=== PATIENT | male | born 1940 | race Caucasian/White ===

== ENCOUNTER 2016-06-27 16:13 | Emergency (ER) | payer MEDICARE, OTHER ==
[2016-06-27 16:24] VITALS: BP 161/100
--- NOTE | 2016-06-27 17:08 | EDM.PDOC ---
ED HPI GENERAL MEDICAL PROBLEM - General Chief Complaint: ENT Problem Stated Complaint: NOSE BLEED Time Seen by Provider: 06/27/16 16:48 Source of Information: Reports: Patient History Limitations: Reports: No Limitations - History of Present Illness INITIAL COMMENTS - FREE TEXT/NARRATIVE: 76-year-old male presents for evaluation treatment of epistaxis. Patient reports that he has been having a nosebleed on and off for last couple of nights. Nose bleeds normally last only a few minutes. States that they have been resolving with pressure. He states that this nosebleed started around 3:30 PM tonight would not stop. He is unsure which nostrils coming out of. It does seem to be anterior as he has only a small amount in the back of his throat. Patient is currently on 81 mg aspirin daily. Patient reports that he has been ill with cough and cold symptoms for the last 10 days. Reports that he developed cold symptoms after returning from a trip. He is currently complaining of a cough and sinus congestion. - Related Data Allergies Allergy/AdvReac Type Severity Reaction Status Date / Time latanoprost [From Xalatan] Allergy Edema Verified 06/27/16 16:20 Penicillins Allergy Anaphylactic Verified 06/27/16 16:20 Shock timolol [Timolol] Allergy Edema Verified 06/27/16 16:20 Home Meds: Home Meds Ascorbic Acid [Vitamin C] 1 tab PO DAILY 07/27/13 [History] Cetirizine HCl [Allergy Relief] 10 mg PO DAILY PRN 07/27/13 [History] Hydrochlorothiazide 12.5 mg PO DAILY 07/27/13 [History] Multivitamin [Multivitamins] 1 each PO DAILY 07/27/13 [History] Aspirin [Ecotrin] 81 mg PO BEDTIME 08/17/14 [History] Metoprolol Tartrate [Lopressor] 25 tab PO BID 08/17/14 [History] Fish Oil/[place]-3 Fatty Acids [Fish Oil] 1,000 mg PO Q2D 06/27/16 [History] Past Medical History Other HEENT History: WEARS GLASSES AND DENTURES, 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 States has a chronic problem with left foot Social & Family History - Family History Family Medical History: Unobtainable - Tobacco Use Smoking Status *Q: Never Smoker Years of Tobacco use: 16 Used Tobacco, but Quit: Yes Month Tobacco Last Used: 47 YEARS AGO Second Hand Smoke Exposure: No - Alcohol Use Days Per Week of Alcohol Use: 0 - Recreational Drug Use Recreational Drug Use: No Drug Use in Last 12 Months: No - Living Situation & Occupation Living situation: Reports: (and) Occupation: retired ED ROS ENT - Review of Systems Review Of Systems: See Below Constitutional: Denies: Fever HEENT: Reports: Nosebleed, Sinus Problem (pressure), Other (nasal congestion). Denies: Ear Pain, Throat Pain Respiratory: Reports: Cough GI/Abdominal: Denies: Abdominal Pain, Nausea, Vomiting ED EXAM, ENT - Physical Exam Exam: See Below Exam Limited By: No Limitations General Appearance: Alert, WD/WN, No Apparent Distress Eye Exam: Right Eye: Other (entropion) Ears: Normal External Exam, Normal Canal Nose: Normal Inspection, Dried Blood (right nare). No: Septal Deformity, Septal Hematoma, Septal Performation, Active Bleeding Mouth/Throat: Normal Inspection, Normal Gums, Normal Lips, Normal Oropharynx Respiratory/Chest: No Respiratory Distress, Lungs Clear, Normal Breath Sounds Cardiovascular: Normal Peripheral Pulses, Regular Rate, Rhythm, No Murmur Neurological: Alert, Oriented, Normal Cognition Psychiatric: Normal Affect, Normal Mood Skin: Warm, Dry, Normal Color ED ENT PROCEDURES - Epistaxis Procedure Indication: epistaxis (prcedure preformed by Dr. Ferraro) Recent anticoagulants/antiplatlets: Yes (81mg aspirin daily) Uncontrolled HTN: No Recent septal/nasal surgery: No Site of bleeding: right nare Clearing of clots: patient blew nose Chemical cautery: silver nitrate topical Post cautery: antibiotic ointment Complications: No Course - Vital Signs Last Recorded V/S: Last Vital Signs Temp 37.2 C 06/27/16 16:20 Pulse 82 06/27/16 16:20 Resp 18 06/27/16 16:20 BP 161/100 H 06/27/16 16:20 Pulse Ox 100 06/27/16 16:20 - Re-Assessments/Exams Free Text/Narrative Re-Assessment/Exam: 06/27/16 19:28 On my initial interview with the patient the bleeding has since subsided. I noted some erythema and inflammation to the medial aspect of the right nare. bleeding does not appear to come from the left nare. There is a small amount of blood in the back of his throat. No active bleeding. I advised him to blow to see if we could elicit any more bleeding. I checked on him again and he continued to have no bleeding. I then took a few cotton swabs and cleaned around the right nare but was not able to start any bleeding. I then let the patient sit for a while longer to see if the bleed wound start again. It did not. We again reexamined the nose and did not find any areas of active bleeding. After I left the room the patient then had a sudden nosebleed, unfortunately, due to other incidences in the ER I unable to come directly to the patient's bedside for about 20 minutes and by that time the bleeding had again subsided. I was unable again to identify any areas of active bleeding. I asked Dr. Jones to come and evaluate the patient. He was able to identify the likely source of the bleeding at the medial right near. He cauterized the area with 3 sticks of silver nitrate. Patient was not given any medicine prior to cautery and he agreed to this. He tolerated the procedure well. I rechecked on him after 10 minutes after the cautery and no active bleeding. Will discharge him home at this time. Departure - Departure Time of Disposition: 19:28 Disposition: Home, Self-Care 01 Condition: good Clinical Impression: Epistaxis, Upper respiratory infection - Discharge Information Instructions: Upper Respiratory Infection, Adult, [id number], Nosebleed, Easy -to-Read Referrals: Alton Vigil Jr, MD [Primary Care Provider] - Forms: ED Department Discharge Additional Instructions: Rx for azithromycin 250mg given through [facility]. Take the azithromycin as prescribed. 2 tabs PO day 1 then 1 tab PO days 2-5 Do not blow nose next 48 hours. Qtip with vaseline or bactrain to the nare bid. Nothing to the right nare x 48 hours. Follow-up with PCP as needed. Please return to the ER should your symptoms change or worsen.
== END 2016-06-27 20:00 | disposition home or self-care (01) ==
LOC: JD.ED 16:13
DX: R04.0 Epistaxis (principal); J06.9 Acute upper respiratory infection, unspecified; Z96.653 Presence of artificial knee joint, bilateral; Z79.82 Long term (current) use of aspirin; Z88.0 Allergy status to penicillin; Z88.8 Allergy status to other drugs, medicaments and biological substances; Z79.899 Other long term (current) drug therapy
CPT/HCPCS: 30901; 99283; 99283-25

== ENCOUNTER 2017-08-01 06:25 | Day surgery (SDC) | payer MEDICARE, OTHER ==
[~2017-08-01 06:25] MED LIST: Lactated Ringers 1,000 ML IV SCH; Lidocaine 1%/Sod Bicarbonate in NS 8.4% 1 ML Syringe IDERM PRN; Sodium Chloride 0.9% 10 ML Syringe FLUSH PRN
[2017-08-01] MEDS ORDERED: Lactated Ringers 1,000 ML ONE (07:30)
[2017-08-01] MEDS ORDERED: ceFAZolin 1 GM Vial ONE ×2 (07:30→07:39)
[2017-08-01] MEDS ORDERED: fentaNYL 100 MCG/2 ML SDV ONE (07:31)
[2017-08-01] MEDS ORDERED: Propofol 200 MG/20 ML SDV ONE (07:31)
[2017-08-01] MEDS ORDERED: Midazolam 1 MG/ML 2 ML SDV ONE (07:31)
[2017-08-01] MEDS ORDERED: Ketamine 500 mg/10 ML MDV ONE (07:32)
[2017-08-01] MEDS ORDERED: Lidocaine 1% 4 ML ONE (07:32)
[2017-08-01] MEDS ORDERED: Bupivacaine 0.75% 30 ML SDV ONE (07:32)
[2017-08-01] MEDS ORDERED: Iodine/Sodium Iodide 2% Tincture 30 ML Bottle ONE (07:39)
[2017-08-01] MEDS ORDERED: Vancomycin 1 GM SDV ONE (07:39)
[2017-08-01] MEDS ORDERED: Bupivacaine 0.25% 30 ML SDV ONE (07:40)
[2017-08-01] MEDS ORDERED: EPINEPHrine 1 MG/ML SDV ONE ×2 (07:41→08:42)
[2017-08-01] MEDS ORDERED: Ropivacaine 0.5% 5 MG/ML 30 ML SDV ONE ×2 (07:41→08:42)
[2017-08-01] MEDS ORDERED: Dexamethasone 4 MG/ML 5 ML MDV ONE (08:07)
[2017-08-01] MEDS ORDERED: Ondansetron 4 MG/2 ML SDV ONE (08:07)
--- NOTE | 2017-08-01 08:35 | PCM.PREANE ---
Preanesthetic Assessment - Anesthesia/Transfusion/Family Hx Anesthesia History: Prior Anesthesia Without Reaction Other Type of Anesthesia Reaction Comment: Federico slow to wake up after hand surgery Family History of Anesthesia Reaction: No - Review of Systems General: No Symptoms Pulmonary: No Symptoms Cardiovascular: No Symptoms, Other (Stress test a few years ago. Negative. ) Gastrointestinal: No Symptoms Neurological: Pre-Existing Deficit (Vertigo. Seeing Dr. Hernandez. Uses a cane. Vestibular training exercises have helped him some. ), Difficulty Walking Other: Reports: None, Anxiety - Physical Assessment NPO Status Date: 08/01/17 NPO Status Time: 20:30 O2 Sat by Pulse Oximetry: 95 Respiratory Rate: 20 Vital Signs: Last Vital Signs Temp 36.8 C 08/01/17 07:20 Pulse 95 08/01/17 07:20 Resp 20 08/01/17 07:20 BP 152/90 H 08/01/17 07:20 Pulse Ox 95 08/01/17 07:20 Height: 1.7 m Weight: 76 kg ASA Class: 2 Mental Status: Alert & Oriented x3 Airway Class: Mallampati = 2 Dentition: Reports: Dentures Thyro-Mental Finger Breadths: 3 Mouth Opening Finger Breadths: 3 ROM/Head Extension: Full Lungs: Clear to Auscultation, Normal Respiratory Effort Cardiovascular: Regular Rate, Regular Rhythm - Lab Values: Laboratory Last Values MRSA (PCR) Negative 07/19/17 11:16 - Imaging/EKG Impressions: Reviewed. Prolonged WA Rate 76 - Allergies Allergies/Adverse Reactions: Allergies Allergy/AdvReac Type Severity Reaction Status Date / Time cat dander Allergy Cannot Verified 08/01/17 07:30 Remember latanoprost [From Xalatan] Allergy Edema Verified 08/01/17 07:30 Penicillins Allergy Anaphylactic Verified 08/01/17 07:30 Shock timolol [Timolol] Allergy Edema Verified 08/01/17 07:30 - Anesthesia Plan Beta Quentin: Metoprolol Med Last Dose Date: 08/01/17 Med Last Dose Time: 05:00 - Acknowledgements Anesthesia Type Planned: Spinal, Regional Block Pt an Appropriate Candidate for the Planned Anesthesia: Yes Alternatives and Risks of Anesthesia Discussed w Pt/Guardian: Yes Pt/Guardian Understands and Agrees with Anesthesia Plan: Yes Additional Comments: Artificial Eye on the right side. Ed states he is very sensitive to pain medications. He would prefer to not use any narcotics if possible. 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) GLAUCOMA WAS TREATED WITH A PROCEDURE TO TREAT THE PRESSURE Cardiovascular History: Reports: Hypertension Respiratory History: Reports: Sleep Apnea Genitourinary History: Reports: None [employer] History: Reports: None Other Musculoskeletal History: A CHILD BROKE HIS LEFT LEG AND IT WAS CASTED Neurological History: Reports: Vertigo Psychiatric History: Reports: None, Addiction, Anxiety Other Psychiatric History: 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, STATES HE'S BEEN SOBER SINCE HE WAS 27 YEARS OLD (49 YEARS) Endocrine/Metabolic History: Reports: None Hematologic History: Reports: None Immunologic History: Reports: None Oncologic (Cancer) History: Reports: None Dermatologic History: Reports: None - Past Surgical History Head Surgeries/Procedures: Reports: None HEENT Surgical History: Reports: Tonsillectomy Cardiovascular Surgical History: Reports: None Respiratory Surgical History: Reports: None GI Surgical History: Reports: Colonoscopy, Hernia Repair/Other Female Surgical History: Reports: None Male Surgical History: Reports: None Endocrine Surgical History: Reports: None Neurological Surgical History: Reports: None Musculoskeletal Surgical History: Reports: Knee Replacement Other Musculoskeletal Surgeries/Procedures:: HAMMERTOE FIXED, BILATERAL TKAS. States has a chronic problem with left foot Oncologic Surgical History: Reports: None Dermatological Surgical History: Reports: None - SUBSTANCE USE Smoking Status *Q: Former Smoker Recreational Drug Use History: No - HOME MEDS Home Medications: Home Meds Ascorbic Acid [Vitamin C] 1 tab PO DAILY 07/27/13 [History] Cetirizine HCl [Allergy Relief] 10 mg PO DAILY PRN 07/27/13 [History] Hydrochlorothiazide 12.5 mg PO DAILY 07/27/13 [History] Multivitamin [Multivitamins] 1 each PO DAILY 07/27/13 [History] Metoprolol Tartrate [Lopressor] 25 tab PO BID 08/17/14 [History] Fish Oil/[place]-3 Fatty Acids [Fish Oil 1,000 MG] 1,000 mg PO Q2D 06/27/16 [ History] Acetaminophen/HYDROcodone [[place] 325-5 MG] 1 - 2 tab PO Q6H PRN #30 tablet 08/01 [Rx] Aspirin 325 mg PO BID #84 tab 08/01/17 [Rx] - CURRENT (IN HOUSE) MEDS Current Meds: Current Medications Lactated Ringer's (Ringers, Lactated) 1,000 mls @ 125 mls/hr IV ASDIRECTED YASMIN Stop: 08/01/17 23:00 Last Admin: 08/01/17 07:31 Dose: 125 mls/hr Lidocaine/Sodium Bicarbonate (Buffered Lidocaine 1% In Ns 8.4%) 0.25 ml IDERM ONETIME PRN PRN Reason: Prior to IV Start Stop: 08/01/17 18:00 Last Admin: 08/01/17 07:31 Dose: 0.25 ml Sodium Chloride (Saline Flush) 10 ml FLUSH ASDIRECTED PRN PRN Reason: Keep Vein Open Stop: 08/01/17 18:00 Discontinued Medications Bupivacaine HCl (Sensorcaine-Mpf 0.75%) Confirm Administered Dose 30 ml .ROUTE .STK-MED ONE Stop: 08/01/17 07:33 Bupivacaine HCl (Marcaine 0.25%) Confirm Administered Dose 30 ml .ROUTE .STK- MED ONE Stop: 08/01/17 07:41 Cefazolin Sodium (Ancef) Confirm Administered Dose 2 gm .ROUTE .STK-MED ONE Stop: 08/01/17 07:31 Cefazolin Sodium (Ancef) Confirm Administered Dose 2 gm .ROUTE .STK-MED ONE Stop: 08/01/17 07:40 Dexamethasone (Dexamethasone) Confirm Administered Dose 20 mg .ROUTE .STK-MED ONE Stop: 08/01/17 08:08 Epinephrine HCl (Adrenalin) Confirm Administered Dose 1 mg .ROUTE .STK-MED ONE Stop: 08/01/17 07:42 Fentanyl (Sublimaze) Confirm Administered Dose 100 mcg .ROUTE .STK-MED ONE Stop: 08/01/17 07:32 Lactated Ringer's (Ringers, Lactated) Confirm Administered Dose 1,000 mls @ as directed .ROUTE .STK-MED ONE Stop: 08/01/17 07:31 Lidocaine HCl (Xylocaine-Mpf 1%) Confirm Administered Dose 4 mls @ as directed .ROUTE .STK-MED ONE Stop: 08/01/17 07:33 Iodine (Iodine 2% Mild Tincture) Confirm Administered Dose 30 ml .ROUTE .STK- MED ONE Stop: 08/01/17 07:40 Ketamine HCl (Ketalar) Confirm Administered Dose 500 mg .ROUTE .STK-MED ONE Stop: 08/01/17 07:33 Midazolam HCl (Versed 1 Mg/Ml) Confirm Administered Dose 2 mg .ROUTE .STK-MED ONE Stop: 08/01/17 07:32 Ondansetron HCl (Zofran) Confirm Administered Dose 4 mg .ROUTE .STK-MED ONE Stop: 08/01/17 08:08 Propofol (Diprivan 20 Ml) Confirm Administered Dose 1,200 mg .ROUTE .STK-MED ONE Stop: 08/01/17 07:32 Ropivacaine (Naropin 0.5%) Confirm Administered Dose 30 ml .ROUTE .STK-MED ONE Stop: 08/01/17 07:42 Tranexamic Acid (Cyklokapron) Confirm Administered Dose 1,000 mg .ROUTE .STK- MED ONE Stop: 08/01/17 07:40 Vancomycin HCl (Vancomycin) Confirm Administered Dose 1 gm .ROUTE .STK-MED ONE Stop: 08/01/17 07:40
[2017-08-01] MEDS ORDERED: Ondansetron 4 MG/2 ML SDV IVPUSH PRN (08:45)
[2017-08-01] MEDS ORDERED: diphenhydrAMINE 50 MG/ML SDV IVPUSH PRN (08:45)
[2017-08-01] MEDS ORDERED: HYDROmorphone 0.5 MG/0.5 ML Syringe IVPUSH PRN (08:45)
[2017-08-01] MEDS ORDERED: fentaNYL 100 MCG/2 ML SDV IVPUSH PRN (08:45)
[2017-08-01] MEDS ORDERED: Ketorolac 30 MG/ML SDV ONE ×2 (09:00→11:15)
--- NOTE | 2017-08-01 09:38 | PCM.POSTAN ---
POST ANESTHESIA ASSESSMENT - MENTAL STATUS Mental Status: Alert, Oriented - VITAL SIGNS Pulse Rate: 69 SaO2: 97 Resp Rate: 12 Blood Pressure: 112/82 Temperature: 36.2 C - RESPIRATORY Respiratory Status: Respiratory Rate WNL, Airway Patent, O2 Saturation Stable, Supplemental Oxygen - CARDIOVASCULAR CV Status: Pulse Rate WNL, Blood Pressure Stable - GASTROINTESTINAL GI Status: No Symptoms - PAIN Pain Score: 0 - POST OP HYDRATION Hydration Status: Adequate & Stable
--- NOTE | 2017-08-01 12:07 | PCM.SN ---
- Free Text/Narrative Note: Right selective femoral nerve block at the adductor canal for post-procedure pain control under US guidance requested by Dr. Berry. Time Out: 958 Start: 958 End: 1008 Chart reviewed. Consent signed. Questions answered. Appropriate monitors applied. Time out performed. Right mid-shaft femur identified with ultrasound, scanning medially of femur, the femoral artery in the adductor canal visualized , and the femoral nerve located laterally to the artery. The skin was prepped lateral to the ultrasound probe with chlorahexadine times two. The 21ga 4 insulated block needle was inserted under direct ultrasound guidance into the adductor canal. 25mL of 0.5% ropivacaine with 1:200,000 epinephrine was injected circumferentially around the nerve with intermittent negative aspiration noted. Patient tolerated the procedure well. Sterile technique noted along with sterile gloves, mask, and sterile probe cover. See picture on progress note and vital signs on nurses notes. Block completed in PACU. Mario Alberto Turner CRNA
[2017-08-02 07:48] VITALS: BP 112/82
--- NOTE | 2017-08-02 07:48 | PCM48HPAN ---
Post Anesthesia Note - EVALUATION WITHIN 48HRS OF ANESTHETIC Pulse Rate: 69 Resp Rate: 18 Temperature: 36.2 C Blood Pressure: 112/82 - COMMENTS/OBSERVATIONS Free Text/Narrative:: Patient discharged 08/01/17.
--- NOTE | 2017-08-02 11:35 | PCM.OPNOTE ---
- General Post-Op/Procedure Note Date of Surgery/Procedure: 08/01/17 Operative Procedure(s): revision of right total knee patellar component Pre Op Diagnosis: painful right total knee arthroplasty Post-Op Diagnosis: Same Anesthesia Technique: Local, MAC, Spinal Primary Surgeon: Diego Berry Anesthesia Provider: Jeanne Turner Roentgenology Teacher: Cristela Gatica Roentgenology Teacher: Domonique Treadwell EBL in mLs: 0 Complications: None Condition: Good Free Text/Narrative:: Intake & Output 08/01/17 08/02/17 08/02/17 22:59 06:59 14:59 Intake Total 0 Balance 0
--- NOTE | 2017-08-03 10:16 | OR ---
DATE OF OPERATION: 08/01/2017 SURGEON: Diego Berry MD OPERATION PERFORMED: Revision of right total knee patellar component. PREOPERATIVE DIAGNOSIS: Painful right total knee arthroplasty. POSTOPERATIVE DIAGNOSIS: Painful right total knee arthroplasty. ANESTHESIA: Local MAC with spinal. ANESTHESIA PROVIDER: Karley Stark. ASSISTANTS: Cristela Gatica PA-C and Domonique Treadwell LPN. ESTIMATED BLOOD LOSS: 0 mL. COMPLICATIONS: None. CONDITION: Stable. DESCRIPTION OF PROCEDURE: The patient was identified in the preoperative holding area. Proper site was marked and identified by the surgeon. The patient was taken back to the operating theater where after adequate anesthesia, the patient's right lower extremity had a nonsterile tourniquet applied and was then sterilely prepped and draped in the usual sterile fashion. OR time-out was performed. The patient received 2 g of IV Ancef. Previous incision was then utilized, skin incision was made, and a medial parapatellar arthrotomy was created. At this time, there was noted to be some infrapatellar adhesions. These were then removed. The patella was then everted and when I did this, the patellar button completely came out of the knee and was grossly loose. All 3 pegs had noted to shear off right at the patellar button and it was freely floating. At this time, the pegs were easily removed from the patella. It was decided that secondary to the patella measuring almost a 17, were resected to a 13 for a 32 x 10 mm patella. The resection was now down to a 13 mm patella and a lateral facetectomy was also performed at this time. We decided at this time, we are going to utilize the previous drill holes, there was no cement at them. For a [place] asymmetric patella, the clamp was placed and the drill holes were then drilled through the previous drill holes and it was noted to have good cancellous bone with no signs of retained cement. At this time, cement was mixed on the back table and a trial 32 mm patella was trialed. It was tracking centrally with no signs of subluxation or dislocation. The 32 mm [place] asymmetric patella was then cemented into place. 1 liter dilute Betadine solution along with 3 liters of pulse lavage irrigation with Ancef were irrigated through the knee. Marcaine was then injected around the knee. A #2 barbed suture was used for closure of the medial parapatellar arthrotomy. 2-0 Vicryl was used subcutaneously and Monocryl were used for the skin. The patient tolerated the procedure well and was sent to PACU in stable condition. REGINA /[id number]
== END 2017-08-01 17:00 | disposition home or self-care (01) ==
LOC: JD.SDS 06:25 → EDSTATUS 08:45 → JD.MS 12:17 → JD.SDS 17:00
PROVIDERS: ATTEND Orthopaedic Surgery
DX: T84.84XA Pain due to internal orthopedic prosthetic devices, implants and grafts, initial encounter (principal); G47.33 Obstructive sleep apnea (adult) (pediatric); I10 Essential (primary) hypertension; J30.9 Allergic rhinitis, unspecified; H81.10 Benign paroxysmal vertigo, unspecified ear; F41.8 Other specified anxiety disorders; Z88.0 Allergy status to penicillin; Z88.8 Allergy status to other drugs, medicaments and biological substances; Z79.899 Other long term (current) drug therapy
CPT/HCPCS: 87641; A9270-GY; J0171; J0690; J1100; J1885; J2001; J2250; J2405; J2704; J2795; J3010; J3370; J3490; J7120

== ENCOUNTER 2019-02-05 12:56 | Inpatient (IN) | payer MEDICARE, OTHER ==
[2019-02-05] MEDS ORDERED: Sodium Chloride 0.9% 10 ML Syringe FLUSH PRN (13:37)
[2019-02-05] MEDS ORDERED: Acetaminophen 325 MG Tab PO ONE (13:39)
--- NOTE | 2019-02-05 13:45 | EDM.PDOC ---
ED HPI GENERAL MEDICAL PROBLEM - General Chief Complaint: Fever Stated Complaint: ALLERGIC REACTION TO MEDICATION Time Seen by Provider: 02/05/19 13:15 Source of Information: Reports: Patient, Family History Limitations: Reports: No Limitations - History of Present Illness INITIAL COMMENTS - FREE TEXT/NARRATIVE: The patient presents with a possible reaction to flomax. He say urology at [place] yesterday and had a cystoscopy. He has been urinating frequently for years. The urologist put him on some flomax and he took a dose this morning and went out to eat. Later he stated shaking and had chills and did not feel well. He had a temp of 101.1 when he arrived here. He has no cough, congestion or runny nose. He did get his flu shot this year. He has no chest pain, shortness of breath, abdominal pain, nausea, vomiting, dysuria or diarrhea. He had a TIA just over a month ago and he has some balance issues. He is on aspirin. He recently took himself off of lipitor because he felt hit made him crabby. Onset: Gradual Duration: Hour(s): Severity: Mild Improves with: Reports: None Worsens with: Reports: None Associated Symptoms: Reports: Fever/Chills. Denies: Chest Pain, Cough, Headaches, Nausea/Vomiting, Shortness of Breath - Related Data Allergies Allergy/AdvReac Type Severity Reaction Status Date / Time cat dander Allergy Cannot Verified 02/05/19 13:19 Remember latanoprost [From Xalatan] Allergy Edema Verified 02/05/19 13:19 Penicillins Allergy Anaphylactic Verified 02/05/19 13:19 Shock timolol [Timolol] Allergy Edema Verified 02/05/19 13:19 Home Meds: Home Meds Ascorbic Acid [Vitamin C] 1 tab PO DAILY 07/27/13 [History] Multivitamin [Multivitamins] 1 each PO DAILY 07/27/13 [History] hydroCHLOROthiazide [Hydrochlorothiazide] 12.5 mg PO DAILY 07/27/13 [History] Metoprolol Tartrate [Lopressor] 50 tab PO BID 08/17/14 [History] Cholecalciferol (Vitamin D3) [Vitamin D3] 5,000 unit PO DAILY 02/05/19 [History] Tamsulosin [Flomax] 0.4 mg PO DAILY 12/19/19 [History] Past Medical History HEENT History: Reports: Glaucoma, Impaired Vision Other HEENT History: WEARS GLASSES AND DENTURES, 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) GLAUCOMA WAS TREATED WITH A PROCEDURE TO TREAT THE PRESSURE Cardiovascular History: Reports: Afib, Hypertension Respiratory History: Reports: Sleep Apnea Gastrointestinal History: Reports: Colon Polyp Genitourinary History: Reports: None RN CARDIOVASCULAR History: Reports: None Musculoskeletal History: Reports: Fracture Other Musculoskeletal History: A CHILD BROKE HIS LEFT LEG AND IT WAS CASTED Neurological History: Reports: Vertigo Psychiatric History: Reports: Addiction Other Psychiatric History: 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, STATES HE'S BEEN SOBER SINCE HE WAS 27 YEARS OLD (49 YEARS) Endocrine/Metabolic History: Reports: None Hematologic History: Reports: None Immunologic History: Reports: None Oncologic (Cancer) History: Reports: Basal Cell Carcinoma, Other (See Below) Dermatologic History: Reports: None - Past Surgical History Head Surgeries/Procedures: Reports: None HEENT Surgical History: Reports: Eye Surgery, Oral Surgery, Tonsillectomy GI Surgical History: Reports: Colonoscopy, EGD, Hernia, Inguinal, Hernia Repair/ Other Male Surgical History: Reports: None Endocrine Surgical History: Reports: None Musculoskeletal Surgical History: Reports: Knee Replacement, Other (See Below) Dermatological Surgical History: Reports: None Social & Family History - Family History Family Medical History: Unobtainable - Tobacco Use Smoking Status *Q: Unknown Ever Smoked - Caffeine Use Caffeine Use: Reports: Coffee - Living Situation & Occupation Living situation: Reports: , with Spouse Occupation: Retired ED ROS GENERAL - Review of Systems Review Of Systems: See Below Constitutional: Reports: Fever, Chills, Malaise, Weakness, Fatigue HEENT: Reports: No Symptoms Respiratory: Reports: No Symptoms Cardiovascular: Reports: No Symptoms Endocrine: Reports: No Symptoms GI/Abdominal: Reports: No Symptoms : Reports: No Symptoms Musculoskeletal: Reports: No Symptoms Skin: Reports: No Symptoms ED EXAM, SEPSIS - Physical Exam Exam: See Below Exam Limited By: No Limitations General Appearance: Alert, No Apparent Distress Ears: Normal External Exam Nose: Normal Inspection Head: Atraumatic, Normocephalic Neck: Normal Inspection Respiratory/Chest: No Respiratory Distress, Lungs Clear, Normal Breath Sounds Cardiovascular: Regular Rate, Rhythm, No Edema, No Murmur GI/Abdominal Exam: Soft, Non-Tender, No Organomegaly, No Mass Back: Normal Inspection Extremities: Normal Inspection Neurological: Alert, Oriented, No Motor/Sensory Deficits Course - Vital Signs Last Recorded V/S: Last Vital Signs Temp 101.1 F H 02/05/19 13:16 Pulse 104 H 02/05/19 13:16 Resp 16 02/05/19 13:16 BP 162/108 H 02/05/19 13:16 Pulse Ox 98 02/05/19 13:16 - Orders/Labs/Meds Orders: Active Orders 24 hr Category Date Time Status Peripheral IV Care [RC] . DIRECTED Care 02/05/19 13:38 Active CULTURE BLOOD [BC] Stat Lab 02/05/19 14:20 Received CULTURE BLOOD [BC] Stat Lab 02/05/19 14:30 Received CULTURE URINE [RM] Stat Lab 02/05/19 13:23 Received LACTIC ACID [CHEM] Stat Lab 02/05/19 17:30 Ordered Sodium Chloride 0.9% [Normal Saline] 1,000 ml Med 02/05/19 14:00 Active IV ASDIRECTED Sodium Chloride 0.9% [Saline Flush] Med 02/05/19 13:37 Active 10 ml FLUSH ASDIRECTED PRN Blood Culture x2 Reflex Set [OM.PC] Stat Oth 02/05/19 13:37 Ordered Peripheral IV Insertion Adult [OM.PC] Stat Oth 02/05/19 13:37 Ordered Post Void Residual [OM.PC] Routine Oth 02/05/19 16:23 Ordered Medication Orders Sodium Chloride (Normal Saline) 1,000 mls @ 100 mls/hr IV ASDIRECTED YASMIN Last Admin: 02/05/19 14:30 Dose: 100 mls/hr Sodium Chloride (Saline Flush) 10 ml FLUSH ASDIRECTED PRN PRN Reason: Keep Vein Open Last Admin: 02/05/19 14:25 Dose: 10 ml Labs: Laboratory Tests 02/05/19 02/05/19 02/05/19 Range/Units 13:23 14:20 14:20 WBC 10.81 H (4.23-9.07) K/mm3 RBC 4.65 (4.63-6.08) M/mm3 Hgb 13.5 L (13.7-17.5) gm/dl Hct 39.7 L (40.1-51.0) % MCV 85.4 (79.0-92.2) fl MCH 29.0 (25.7-32.2) pg MCHC 34.0 (32.2-35.5) g/dl RDW Std Deviation 40.6 (35.1-43.9) fL Plt Count 237 D (163-337) K/mm3 MPV 8.7 L (9.4-12.3) fl Neut % (Auto) 88.1 H (34.0-67.9) % Lymph % (Auto) 3.2 L (21.8-53.1) % [place] % (Auto) 7.6 (5.3-12.2) % Eos % (Auto) 0.8 (0.8-7.0) Baso % (Auto) 0.2 (0.1-1.2) % Neut # (Auto) 9.52 H (1.78-5.38) K/mm3 Lymph # (Auto) 0.35 L (1.32-3.57) K/mm3 [place] # (Auto) 0.82 (0.30-0.82) K/mm3 Eos # (Auto) 0.09 (0.04-0.54) K/mm3 Baso # (Auto) 0.02 (0.01-0.08) K/mm3 Manual Slide Review Abnormal smear Sodium 133 L (136-145) mEq/L Potassium 3.4 L (3.5-5.1) mEq/L Chloride 96 L (98-107) mEq/L Carbon Dioxide 27 (21-32) mEq/L Anion Gap 13.4 (5-15) BUN 14 (7-18) mg/dL Creatinine 0.8 (0.7-1.3) mg/dL Est Cr Clr Drug Dosing 76.00 mL/min Estimated GFR (MDRD) > 60 (>60) mL/min BUN/Creatinine Ratio 17.5 (14-18) Glucose 95 (83-115) mg/dL Lactic Acid (0.4-2.0) mmol/L Calcium 8.7 (8.5-10.1) mg/dL Total Bilirubin 1.6 H (0.2-1.0) mg/dL AST 27 (15-37) U/L ALT 25 (16-63) U/L Alkaline Phosphatase 97 (46-116) U/L Total Protein 6.9 (6.4-8.2) g/dl Albumin 3.8 (3.4-5.0) g/dl Globulin 3.1 gm/dL Albumin/Globulin Ratio 1.2 (1-2) Urine Color Yellow (Yellow) Urine Appearance Slt cloudy H (Clear) Urine pH 6.5 (5.0-8.0) Ur Specific [place] 1.025 (1.005-1.030) Urine Protein 1+ H (Negative) Urine Glucose (UA) Negative (Negative) Urine Ketones Negative (Negative) Urine Occult Blood 3+ H (Negative) Urine Nitrite Negative (Negative) Urine Bilirubin Negative (Negative) Urine Urobilinogen 1.0 (0.2-1.0) Ur Leukocyte Esterase 1+ H (Negative) Urine RBC 50-75 H (0-5) /hpf Urine WBC 40-50 H (0-5) /hpf Ur Squamous Epith Cells 0-5 (0-5) /hpf Urine Bacteria Moderate H (FEW) /hpf Urine Mucus Few (FEW) /hpf 02/05/19 Range/Units 14:20 WBC (4.23-9.07) K/mm3 RBC (4.63-6.08) M/mm3 Hgb (13.7-17.5) gm/dl Hct (40.1-51.0) % MCV (79.0-92.2) fl MCH (25.7-32.2) pg MCHC (32.2-35.5) g/dl RDW Std Deviation (35.1-43.9) fL Plt Count (163-337) K/mm3 MPV (9.4-12.3) fl Neut % (Auto) (34.0-67.9) % Lymph % (Auto) (21.8-53.1) % [place] % (Auto) (5.3-12.2) % Eos % (Auto) (0.8-7.0) Baso % (Auto) (0.1-1.2) % Neut # (Auto) (1.78-5.38) K/mm3 Lymph # (Auto) (1.32-3.57) K/mm3 [place] # (Auto) (0.30-0.82) K/mm3 Eos # (Auto) (0.04-0.54) K/mm3 Baso # (Auto) (0.01-0.08) K/mm3 Manual Slide Review Sodium (136-145) mEq/L Potassium (3.5-5.1) mEq/L Chloride (98-107) mEq/L Carbon Dioxide (21-32) mEq/L Anion Gap (5-15) BUN (7-18) mg/dL Creatinine (0.7-1.3) mg/dL Est Cr Clr Drug Dosing mL/min Estimated GFR (MDRD) (>60) mL/min BUN/Creatinine Ratio (14-18) Glucose (83-115) mg/dL Lactic Acid 1.2 (0.4-2.0) mmol/L Calcium (8.5-10.1) mg/dL Total Bilirubin (0.2-1.0) mg/dL AST (15-37) U/L ALT (16-63) U/L Alkaline Phosphatase (46-116) U/L Total Protein (6.4-8.2) g/dl Albumin (3.4-5.0) g/dl Globulin gm/dL Albumin/Globulin Ratio (1-2) Urine Color (Yellow) Urine Appearance (Clear) Urine pH (5.0-8.0) Ur Specific [place] (1.005-1.030) Urine Protein (Negative) Urine Glucose (UA) (Negative) Urine Ketones (Negative) Urine Occult Blood (Negative) Urine Nitrite (Negative) Urine Bilirubin (Negative) Urine Urobilinogen (0.2-1.0) Ur Leukocyte Esterase (Negative) Urine RBC (0-5) /hpf Urine WBC (0-5) /hpf Ur Squamous Epith Cells (0-5) /hpf Urine Bacteria (FEW) /hpf Urine Mucus (FEW) /hpf Meds: Medications Generic Name Dose Route Start Last Admin Trade Name Freq PRN Reason Stop Dose Admin Sodium Chloride 1,000 mls @ 100 mls/hr 02/05/19 14:00 02/05/19 14:30 Normal Saline IV 100 mls/hr ASDIRECTED YASMIN Administration Sodium Chloride 10 ml 02/05/19 13:37 02/05/19 14:25 Saline Flush FLUSH 10 ml ASDIRECTED PRN Administration Keep Vein Open Discontinued Medications Generic Name Dose Route Start Last Admin Trade Name Freq PRN Reason Stop Dose Admin Acetaminophen 975 mg 02/05/19 13:39 02/05/19 14:24 Tylenol PO 02/05/19 13:40 975 mg NOW ONE Administration Ceftriaxone Sodium 2 gm/ 100 mls @ 200 mls/hr 02/05/19 15:10 02/05/19 15:17 Sodium Chloride IV 02/05/19 15:39 200 mls/hr ONETIME ONE Administration - Re-Assessments/Exams Free Text/Narrative Re-Assessment/Exam: 02/05/19 14:23 I ordered an IV NS at 100ml/hr, labs, tylenol 975mg PO, lactic acid, blood cultures and UA. 02/05/19 16:20 His WBC was elevated at 10.81. His Na was a little low at 133. His K was a little low at 3.4. His total bili is elevated at 1.6. His UA shows a UTI. I have ordered urine culture and rocephin 2 grams IV[address] I [address] Dr Tello the urologist who he has been seeing at [place]. 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 He also mentioned he had a slightly enlarged prostate and some signs of BPH. He recommended we do a post void. He had 29mls when he was there. I will talk to Dr Greer and see if we can admit him. 02/05/19 16:48 Dr Greer agreed to the admission. Departure - Departure Time of Disposition: 16:50 Disposition: Refer to Observation Condition: Fair Clinical Impression: Tachycardia UTI (urinary tract infection) Qualifiers: Urinary tract infection type: acute cystitis Hematuria presence: with hematuria Qualified Code(s): N30.01 - Acute cystitis with hematuria - Discharge Information Referrals: Alton Vigil Jr, MD [Primary Care Provider] - Forms: ED Department Discharge Sepsis Event Note - Evaluation Sepsis Screening Result: No Definite Risk - Focused Exam Vital Signs: Vital Signs Temp Pulse Resp BP Pulse Ox 02/05/19 13:16 101.1 F H 104 H 16 162/108 H 98 Date Exam was Performed: 02/05/19 Time Exam was Performed: 16:48 - My Orders Last 24 Hours: My Active Orders 02/05/19 13:23 CULTURE URINE [RM] Stat 02/05/19 13:37 Sodium Chloride 0.9% [Saline Flush] 10 ml FLUSH ASDIRECTED PRN Blood Culture x2 Reflex Set [OM.PC] Stat Peripheral IV Insertion Adult [OM.PC] Stat 02/05/19 13:38 Peripheral IV Care [RC] . DIRECTED 02/05/19 14:00 Sodium Chloride 0.9% [Normal Saline] 1,000 ml IV ASDIRECTED 02/05/19 14:20 CULTURE BLOOD [BC] Stat 02/05/19 14:30 CULTURE BLOOD [BC] Stat 02/05/19 16:23 Post Void Residual [OM.PC] Routine 02/05/19 17:30 LACTIC ACID [CHEM] Stat - Assessment/Plan Last 24 Hours: My Active Orders 02/05/19 13:23 CULTURE URINE [RM] Stat 02/05/19 13:37 Sodium Chloride 0.9% [Saline Flush] 10 ml FLUSH ASDIRECTED PRN Blood Culture x2 Reflex Set [OM.PC] Stat Peripheral IV Insertion Adult [OM.PC] Stat 02/05/19 13:38 Peripheral IV Care [RC] . DIRECTED 02/05/19 14:00 Sodium Chloride 0.9% [Normal Saline] 1,000 ml IV ASDIRECTED 02/05/19 14:20 CULTURE BLOOD [BC] Stat 02/05/19 14:30 CULTURE BLOOD [BC] Stat 02/05/19 16:23 Post Void Residual [OM.PC] Routine 02/05/19 17:30 LACTIC ACID [CHEM] Stat
[2019-02-05] MEDS ORDERED: Sodium Chloride 0.9% 1,000 ML IV SCH (14:00)
[2019-02-05] MEDS ORDERED: cefTRIAXone 2 GM in Sodium Chloride 0.9% 100 ML IV ONE (15:10)
--- NOTE | 2019-02-05 17:15 | PCM.HP.2 ---
H&P History of Present Illness - General Date of Service: 02/05/19 - History of Present Illness Initial Comments - Free Text/Narative: This is a 78 year old male with past medical history of hypertension who comes to the ED complaining of chills. As per patient he got a cystoscopy yesterday for microscopic hematuria, he tolerated the procedure well; was discharged home after procedure to start Flomax at home. Today in the morning he suddenly developed chills and fever for which he decided to come to the ED to be evaluated. - Related Data Allergies/Adverse Reactions: Allergies Allergy/AdvReac Type Severity Reaction Status Date / Time cat dander Allergy Cannot Verified 02/05/19 18:03 Remember latanoprost [From Xalatan] Allergy Edema Verified 02/05/19 18:03 Penicillins Allergy Anaphylactic Verified 02/05/19 18:03 Shock timolol [Timolol] Allergy Edema Verified 02/05/19 18:03 Home Medications: Home Meds Ascorbic Acid [Vitamin C] 1 tab PO DAILY 07/27/13 [History] Multivitamin [Multivitamins] 1 each PO DAILY 07/27/13 [History] hydroCHLOROthiazide [Hydrochlorothiazide] 12.5 mg PO DAILY 07/27/13 [History] Carboxymethylcellulose Sodium [Refresh Tears] 1 ml OP PRN 02/05/19 [History] Cholecalciferol (Vitamin D3) [Vitamin D3] 5,000 unit PO DAILY 02/05/19 [History] Metoprolol Tartrate 25 mg PO BID 02/05/19 [History] Mineral Oil/Petrolatum,White [Lubricant Eye Ointment] 3.5 gm OP 02/05/19 [ History] Tamsulosin [Flomax] 0.4 mg PO DAILY 02/05/19 [History] Past Medical History HEENT History: Reports: Glaucoma, Impaired Vision Other HEENT History: WEARS GLASSES AND DENTURES, 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) GLAUCOMA WAS TREATED WITH A PROCEDURE TO TREAT THE PRESSURE Cardiovascular History: Reports: Afib, Hypertension Respiratory History: Reports: Sleep Apnea Gastrointestinal History: Reports: Colon Polyp Genitourinary History: Reports: None FILAMENT WELDER 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: 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: 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 Musculoskeletal History: Reports: Fracture Other Musculoskeletal History: A CHILD BROKE HIS LEFT LEG AND IT WAS CASTED Neurological History: Reports: Vertigo Psychiatric History: Reports: Addiction Other Psychiatric History: 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, STATES HE'S BEEN SOBER SINCE HE WAS 27 YEARS OLD (49 YEARS) Endocrine/Metabolic History: Reports: None Hematologic History: Reports: None Immunologic History: Reports: None Oncologic (Cancer) History: Reports: Basal Cell Carcinoma, Other (See Below) Dermatologic History: Reports: None - Past Surgical History Head Surgeries/Procedures: Reports: None HEENT Surgical History: Reports: Eye Surgery, Oral Surgery, Tonsillectomy GI Surgical History: Reports: Colonoscopy, EGD, Hernia, Inguinal, Hernia Repair/ Other Male Surgical History: Reports: None Endocrine Surgical History: Reports: None Musculoskeletal Surgical History: Reports: Knee Replacement, Other (See Below) Dermatological Surgical History: Reports: None Social & Family History - Family History Family Medical History: Unobtainable - Tobacco Use Smoking Status *Q: Unknown Ever Smoked - Caffeine Use Caffeine Use: Reports: Coffee - Living Situation & Occupation Living situation: Reports: , with Spouse Occupation: Retired H&P Review of Systems - Review of Systems: Review Of Systems: See Below General: Reports: Fever, Malaise. Denies: Weakness, Fatigue, Night Sweats, Diaphoresis, Decreased Appetite, Weight Loss, Weight Gain HEENT: Denies: Rhinitis, Post Nasal Drip, Sinus Congestion, Sore Throat, Vertigo , Visual Changes Pulmonary: Denies: Shortness of Breath, Wheezing, Pleuritic Chest Pain, Cough, Sputum Cardiovascular: Denies: Chest Pain, Palpitations, Dyspnea on Exertion, Orthopnea , PND, Edema, Lightheadedness Gastrointestinal: Denies: Abdominal Pain, Anorexia, Black Stool, Bloody Stool, Constipation, Diarrhea, Decreased Appetite, Difficulty Swallowing, Distension, Flatus, Hematemesis, Hematochezia, Melena, Nausea, Vomiting Genitourinary: Reports: Frequency, Hematuria. Denies: Dysuria, Burning, Pain, Urgency, Incontinence Musculoskeletal: Denies: Joint Pain, Joint Swelling, Muscle Pain, Muscle Stiffness Skin: Denies: Cyanosis, Jaundice, Mottled, Pallor, Diaphoresis, Dryness Psychiatric: Denies: Confusion, Depression, Mood Lability, Anxiety, Agitation Neurological: Denies: Confusion, Dizziness, Headache, Numbness, Paresthesia Exam - Exam Exam: See Below - Vital Signs Vital Signs: Last Vital Signs Temp 101.1 F H 02/05/19 13:16 Pulse 104 H 02/05/19 13:16 Resp 16 02/05/19 13:16 BP 162/108 H 02/05/19 13:16 Pulse Ox 98 02/05/19 13:16 Weight: 78.018 kg - Exam General: Alert, Oriented, Cooperative HEENT: Conjunctiva Clear, EACs Clear, Nares Patent, Normal Nasal Septum Neck: Supple, Trachea Midline, +2 Carotid Pulse wo Bruit, Full Range of Motion. No: Lymphadenopathy Lungs: Clear to Auscultation, Normal Respiratory Effort. No: Decreased Breath Sounds, Crackles, Rales, Rhonchi, Rub, Stridor, Wheezing Cardiovascular: Regular Rate, Regular Rhythm. No: Systolic Murmur, Diastolic Murmur, Rubs, Gallop/S3, Gallop/S4 GI/Abdominal Exam: Normal Bowel Sounds, Soft, Non-Tender, No Organomegaly, No Distention Back Exam: Normal Inspection. No: CVA Tenderness (L), CVA Tenderness (R) Extremities: Normal Inspection, Normal Range of Motion, Non-Tender, No Pedal Edema Skin: Warm - Patient Data Result Diagrams: 02/06/19 05:28 02/06/19 05:28 Sepsis Event Note - Evaluation Sepsis Screening Result: No Definite Risk - Focused Exam Vital Signs: Vital Signs Temp Pulse Resp BP Pulse Ox 02/05/19 13:16 101.1 F H 104 H 16 162/108 H 98 Date Exam was Performed: 02/06/19 Time Exam was Performed: 17:59 - Problem List (1) Hypertension SNOMED Code(s): 98747893 ICD Code: I10 - ESSENTIAL (PRIMARY) HYPERTENSION Status: Acute Current Visit: Yes (2) Fever SNOMED Code(s): 808263595 ICD Code: R50.9 - FEVER, UNSPECIFIED Status: Acute Current Visit: Yes (3) Hematuria SNOMED Code(s): 87061480 ICD Code: R31.9 - HEMATURIA, UNSPECIFIED Status: Acute Current Visit: Yes (4) Tachycardia SNOMED Code(s): 7346167 ICD Code: R00.0 - TACHYCARDIA, UNSPECIFIED Status: Acute Current Visit: Yes (5) UTI (urinary tract infection) SNOMED Code(s): 76275983 ICD Code: N39.0 - URINARY TRACT INFECTION, SITE NOT SPECIFIED Status: Acute Current Visit: Yes Qualifiers: Urinary tract infection type: acute cystitis Hematuria presence: with hematuria Qualified Code(s): N30.01 - Acute cystitis with hematuria (6) Prostate hypertrophy SNOMED Code(s): 142492516 ICD Code: N40.0 - BENIGN PROSTATIC HYPERPLASIA WITHOUT LOWER URINRY TRACT SYMP Status: Chronic Priority: Medium Current Visit: No Onset Date: 03/04 Problem List Initiated/Reviewed/Updated: Yes Assessment/Plan Comment:: UTI (urinary tract infection) Tachycardia Fever s/p cystoscopy Prostate hypertrophy Pathologic UA after cystoscopy Patient is likely bacteremic due to high and recurrent fevers Urine and blood cultures sent out PLAN - Start ceftriaxone - Trend temperature - Reculture if febrile - Monitor VS Hypertension BP on admission 162/108 Home management with metoprolol and HCTZ PLAN - Continue home meds - Lower metoprolol dose - Hydralazine PRN PROPHYLAXIS DVT-Lovenox GI- not indicated CODE STATUS: FULL CODE DISPOSITION: Patient will be admitted for Iv antibiotics and monitorization. - Mortality Measure Prognosis:: Good
[2019-02-05] MEDS ORDERED: Ondansetron 4 MG/2 ML SDV IV PRN (17:16)
[2019-02-05] MEDS ORDERED: hydrALAZINE 20 MG/ML SDV IVPUSH PRN (17:16)
[2019-02-05] MEDS ORDERED: Ondansetron 4 MG Tab.DIS PO PRN (17:16)
[2019-02-05] MEDS: Lactated Ringers 1,000 ML IV SCH (17:29)
[2019-02-05] MEDS ORDERED: cefTRIAXone 2 GM in Sodium Chloride 0.9% 100 ML IV SCH (17:30)
[2019-02-05] MEDS ORDERED: Metoprolol Tartrate 25 MG Tab PO ONE (21:00)
[2019-02-05] MEDS ORDERED: Metoprolol Tartrate 25 MG Tab PO SCH (21:00)
[2019-02-05] MEDS ORDERED: METOPROLOL TARTRATE 50 MG PO SCH ×2 (21:00)
[2019-02-06] MEDS: Acetaminophen 325 MG Tab PO PRN ×2 (00:49→12:53)
[2019-02-06] MEDS: Lactated Ringers 1,000 ML IV SCH (01:53)
--- NOTE | 2019-02-06 08:41 | PCM.PN ---
- General Info Date of Service: 02/06/19 - Patient Data Vitals - Most Recent: Last Vital Signs Temp 98.1 F 02/06/19 07:58 Pulse 103 H 02/06/19 07:58 Resp 16 02/06/19 07:58 BP 126/83 02/06/19 07:58 Pulse Ox 99 02/06/19 07:58 Weight - Most Recent: 174 lb 9.6 oz I&O - Last 24 Hours: Intake & Output 02/05/19 02/06/19 02/06/19 22:59 06:59 14:59 Intake Total 300 1435 Output Total 30 400 Balance 270 1035 Lab Results Last 24 Hours: Laboratory Results - last 24 hr 02/05/19 02/05/19 02/05/19 Range/Units 13:23 14:20 14:20 WBC 10.81 H (4.23-9.07) K/mm3 RBC 4.65 (4.63-6.08) M/mm3 Hgb 13.5 L (13.7-17.5) gm/dl Hct 39.7 L (40.1-51.0) % MCV 85.4 (79.0-92.2) fl MCH 29.0 (25.7-32.2) pg MCHC 34.0 (32.2-35.5) g/dl RDW Std Deviation 40.6 (35.1-43.9) fL Plt Count 237 D (163-337) K/mm3 MPV 8.7 L (9.4-12.3) fl Neut % (Auto) 88.1 H (34.0-67.9) % Lymph % (Auto) 3.2 L (21.8-53.1) % [place] % (Auto) 7.6 (5.3-12.2) % Eos % (Auto) 0.8 (0.8-7.0) Baso % (Auto) 0.2 (0.1-1.2) % Neut # (Auto) 9.52 H (1.78-5.38) K/mm3 Lymph # (Auto) 0.35 L (1.32-3.57) K/mm3 [place] # (Auto) 0.82 (0.30-0.82) K/mm3 Eos # (Auto) 0.09 (0.04-0.54) K/mm3 Baso # (Auto) 0.02 (0.01-0.08) K/mm3 Manual Slide Review Abnormal smear Sodium 133 L (136-145) mEq/L Potassium 3.4 L (3.5-5.1) mEq/L Chloride 96 L (98-107) mEq/L Carbon Dioxide 27 (21-32) mEq/L Anion Gap 13.4 (5-15) BUN 14 (7-18) mg/dL Creatinine 0.8 (0.7-1.3) mg/dL Est Cr Clr Drug Dosing 76.00 mL/min Estimated GFR (MDRD) > 60 (>60) mL/min BUN/Creatinine Ratio 17.5 (14-18) Glucose 95 (83-115) mg/dL Lactic Acid (0.4-2.0) mmol/L Calcium 8.7 (8.5-10.1) mg/dL Phosphorus (2.6-4.7) mg/dL Magnesium (1.8-2.4) mg/dl Total Bilirubin 1.6 H (0.2-1.0) mg/dL AST 27 (15-37) U/L ALT 25 (16-63) U/L Alkaline Phosphatase 97 (46-116) U/L Total Protein 6.9 (6.4-8.2) g/dl Albumin 3.8 (3.4-5.0) g/dl Globulin 3.1 gm/dL Albumin/Globulin Ratio 1.2 (1-2) Urine Color Yellow (Yellow) Urine Appearance Slt cloudy H (Clear) Urine pH 6.5 (5.0-8.0) Ur Specific [place] 1.025 (1.005-1.030) Urine Protein 1+ H (Negative) Urine Glucose (UA) Negative (Negative) Urine Ketones Negative (Negative) Urine Occult Blood 3+ H (Negative) Urine Nitrite Negative (Negative) Urine Bilirubin Negative (Negative) Urine Urobilinogen 1.0 (0.2-1.0) Ur Leukocyte Esterase 1+ H (Negative) Urine RBC 50-75 H (0-5) /hpf Urine WBC 40-50 H (0-5) /hpf Ur Squamous Epith Cells 0-5 (0-5) /hpf Urine Bacteria Moderate H (FEW) /hpf Urine Mucus Few (FEW) /hpf 02/05/19 02/05/19 02/06/19 Range/Units 14:20 17:20 05:28 WBC 15.01 H (4.23-9.07) K/mm3 RBC 4.32 L (4.63-6.08) M/mm3 Hgb 12.4 L (13.7-17.5) gm/dl Hct 37.0 L (40.1-51.0) % MCV 85.6 (79.0-92.2) fl MCH 28.7 (25.7-32.2) pg MCHC 33.5 (32.2-35.5) g/dl RDW Std Deviation 41.3 (35.1-43.9) fL Plt Count 183 (163-337) K/mm3 MPV 9.5 (9.4-12.3) fl Neut % (Auto) 81.6 H (34.0-67.9) % Lymph % (Auto) 5.9 L (21.8-53.1) % [place] % (Auto) 12.1 (5.3-12.2) % Eos % (Auto) 0.1 L (0.8-7.0) Baso % (Auto) 0.1 (0.1-1.2) % Neut # (Auto) 12.26 H (1.78-5.38) K/mm3 Lymph # (Auto) 0.88 L (1.32-3.57) K/mm3 [place] # (Auto) 1.81 H (0.30-0.82) K/mm3 Eos # (Auto) 0.01 L (0.04-0.54) K/mm3 Baso # (Auto) 0.02 (0.01-0.08) K/mm3 Manual Slide Review Abnormal smear Sodium (136-145) mEq/L Potassium (3.5-5.1) mEq/L Chloride (98-107) mEq/L Carbon Dioxide (21-32) mEq/L Anion Gap (5-15) BUN (7-18) mg/dL Creatinine (0.7-1.3) mg/dL Est Cr Clr Drug Dosing mL/min Estimated GFR (MDRD) (>60) mL/min BUN/Creatinine Ratio (14-18) Glucose (83-115) mg/dL Lactic Acid 1.2 0.8 (0.4-2.0) mmol/L Calcium (8.5-10.1) mg/dL Phosphorus (2.6-4.7) mg/dL Magnesium (1.8-2.4) mg/dl Total Bilirubin (0.2-1.0) mg/dL AST (15-37) U/L ALT (16-63) U/L Alkaline Phosphatase (46-116) U/L Total Protein (6.4-8.2) g/dl Albumin (3.4-5.0) g/dl Globulin gm/dL Albumin/Globulin Ratio (1-2) Urine Color (Yellow) Urine Appearance (Clear) Urine pH (5.0-8.0) Ur Specific [place] (1.005-1.030) Urine Protein (Negative) Urine Glucose (UA) (Negative) Urine Ketones (Negative) Urine Occult Blood (Negative) Urine Nitrite (Negative) Urine Bilirubin (Negative) Urine Urobilinogen (0.2-1.0) Ur Leukocyte Esterase (Negative) Urine RBC (0-5) /hpf Urine WBC (0-5) /hpf Ur Squamous Epith Cells (0-5) /hpf Urine Bacteria (FEW) /hpf Urine Mucus (FEW) /hpf 02/06/19 Range/Units 05:28 WBC (4.23-9.07) K/mm3 RBC (4.63-6.08) M/mm3 Hgb (13.7-17.5) gm/dl Hct (40.1-51.0) % MCV (79.0-92.2) fl MCH (25.7-32.2) pg MCHC (32.2-35.5) g/dl RDW Std Deviation (35.1-43.9) fL Plt Count (163-337) K/mm3 MPV (9.4-12.3) fl Neut % (Auto) (34.0-67.9) % Lymph % (Auto) (21.8-53.1) % [place] % (Auto) (5.3-12.2) % Eos % (Auto) (0.8-7.0) Baso % (Auto) (0.1-1.2) % Neut # (Auto) (1.78-5.38) K/mm3 Lymph # (Auto) (1.32-3.57) K/mm3 [place] # (Auto) (0.30-0.82) K/mm3 Eos # (Auto) (0.04-0.54) K/mm3 Baso # (Auto) (0.01-0.08) K/mm3 Manual Slide Review Sodium 132 L (136-145) mEq/L Potassium 3.2 L (3.5-5.1) mEq/L Chloride 98 (98-107) mEq/L Carbon Dioxide 25 (21-32) mEq/L Anion Gap 12.2 (5-15) BUN 16 (7-18) mg/dL Creatinine 0.8 (0.7-1.3) mg/dL Est Cr Clr Drug Dosing 76.00 mL/min Estimated GFR (MDRD) > 60 (>60) mL/min BUN/Creatinine Ratio 20.0 H (14-18) Glucose 136 H (83-115) mg/dL Lactic Acid (0.4-2.0) mmol/L Calcium 8.5 (8.5-10.1) mg/dL Phosphorus 3.1 (2.6-4.7) mg/dL Magnesium 1.6 L (1.8-2.4) mg/dl Total Bilirubin (0.2-1.0) mg/dL AST (15-37) U/L ALT (16-63) U/L Alkaline Phosphatase (46-116) U/L Total Protein (6.4-8.2) g/dl Albumin (3.4-5.0) g/dl Globulin gm/dL Albumin/Globulin Ratio (1-2) Urine Color (Yellow) Urine Appearance (Clear) Urine pH (5.0-8.0) Ur Specific [place] (1.005-1.030) Urine Protein (Negative) Urine Glucose (UA) (Negative) Urine Ketones (Negative) Urine Occult Blood (Negative) Urine Nitrite (Negative) Urine Bilirubin (Negative) Urine Urobilinogen (0.2-1.0) Ur Leukocyte Esterase (Negative) Urine RBC (0-5) /hpf Urine WBC (0-5) /hpf Ur Squamous Epith Cells (0-5) /hpf Urine Bacteria (FEW) /hpf Urine Mucus (FEW) /hpf Hany Results Last 24 Hours: Microbiology 02/05/19 13:50 Influenza Type A Antigen Screen - Final Nasopharyngeal Swab NEGATIVE INFLUENZA A VIRUS AG REFERENCE RANGE: NEGATIVE Influenza Type B Antigen Screen - Final NEGATIVE INFLUENZA B VIRUS AG REFERENCE RANGE: NEGATIVE Med Orders - Current: Current Medications Acetaminophen (Tylenol) 650 mg PO Q4H PRN PRN Reason: Pain (Mild 1-3)/fever Last Admin: 02/06/19 00:49 Dose: 650 mg Enoxaparin Sodium (Lovenox) 40 mg SUBCUT DAILY [facility] Hydralazine HCl (Apresoline) 10 mg IVPUSH Q2H PRN PRN Reason: Hypertension Lactated Ringer's (Ringers, Lactated) 1,000 mls @ 125 mls/hr IV ASDIRECTED [facility] Last Admin: 02/06/19 01:53 Dose: 125 mls/hr Ceftriaxone Sodium 2 gm/ (Sodium Chloride) 100 mls @ 200 mls/hr IV Q24H [facility] Metoprolol Tartrate (Lopressor) 25 mg PO BID [facility] Ondansetron HCl (Zofran) 4 mg IV Q6H PRN PRN Reason: Nausea/Vomiting Ondansetron HCl (Zofran Odt) 4 mg PO Q6H PRN PRN Reason: nausea, able to take PO Sodium Chloride (Saline Flush) 10 ml FLUSH ASDIRECTED PRN PRN Reason: Keep Vein Open Last Admin: 02/05/19 14:25 Dose: 10 ml Tamsulosin HCl (Flomax) 0.4 mg PO DAILY [facility] Discontinued Medications Acetaminophen (Tylenol) 975 mg PO NOW ONE Stop: 02/05/19 13:40 Last Admin: 02/05/19 14:24 Dose: 975 mg Sodium Chloride (Normal Saline) 1,000 mls @ 100 mls/hr IV ASDIRECTED [facility] Last Admin: 02/05/19 14:30 Dose: 100 mls/hr Ceftriaxone Sodium 2 gm/ (Sodium Chloride) 100 mls @ 200 mls/hr IV ONETIME ONE Stop: 02/05/19 15:39 Last Admin: 02/05/19 15:17 Dose: 200 mls/hr Ceftriaxone Sodium 2 gm/ (Sodium Chloride) 100 mls @ 200 mls/hr IV Q24H [facility] Last Admin: 02/05/19 19:46 Dose: Not Given Metoprolol Tartrate (Lopressor) 50 mg PO BID [facility] Metoprolol Tartrate (Lopressor) 25 mg PO BID [facility] Metoprolol Tartrate (Lopressor) 0 mg PO BID [facility] Metoprolol Tartrate (Lopressor) 25 mg PO ONETIME ONE Stop: 02/05/19 21:01 Last Admin: 02/05/19 20:18 Dose: 25 mg Sepsis Event Note - Evaluation Sepsis Screening Result: No Definite Risk - Focused Exam Vital Signs: Vital Signs Temp Pulse Resp BP Pulse Ox 02/06/19 07:58 98.1 F 103 H 16 126/83 99 02/06/19 05:12 98/50 L 02/06/19 05:11 99.0 F 81 20 94/47 L 96 02/06/19 00:49 101.8 F H 02/06/19 00:30 101.8 F H 104 H 20 146/88 H 94 L 02/05/19 21:21 99.7 F Date Exam was Performed: 02/06/19 Time Exam was Performed: 08:41
[2019-02-06] MEDS ORDERED: Magnesium Sulfate/Water 2 GM in Premix Bag 1 BAG IV ONE (08:52)
[2019-02-06] MEDS: Enoxaparin 40 MG/0.4 ML Syringe SUBCUT SCH (09:48)
[2019-02-06] MEDS: Tamsulosin 0.4 MG Cap.ER **PT OWN MED PO SCH (09:51)
[2019-02-06] MEDS ORDERED: Metoprolol Tartrate 25 MG Tab PO SCH (09:59)
[2019-02-06] MEDS: Metoprolol Tartrate 25 MG Tab PO SCH ×4 (10:04→21:58)
[2019-02-06] MEDS: Potassium Chloride 10 MEQ in Premix Bag 1 BAG IV SCH ×4 (11:44→15:00)
[2019-02-06] MEDS: cefTRIAXone 2 GM in Sodium Chloride 0.9% 100 ML IV SCH (16:14)
--- NOTE | 2019-02-06 17:56 | PCM.PN ---
- General Info Date of Service: 02/06/19 Subjective Update: Had fever spikes overnight Slept ok Feeling a little better Tolerating diet - Patient Data Vitals - Most Recent: Last Vital Signs Temp 99.9 F 02/06/19 15:11 Pulse 98 02/06/19 15:11 Resp 24 H 02/06/19 15:11 BP 109/66 02/06/19 15:11 Pulse Ox 93 L 02/06/19 15:11 Weight - Most Recent: 79.197 kg - Exam General: Alert, Oriented, Cooperative, No Acute Distress HEENT: Mucous Membr. Moist/[place] Neck: Supple, Trachea Midline, No JVD, No Thyromegaly, +2 Carotid Pulse wo Bruit Lungs: Clear to Auscultation, Normal Respiratory Effort. No: Crackles, Rales, Rhonchi, Rub, Stridor, Wheezing Cardiovascular: Regular Rate, Regular Rhythm. No: Murmurs, Gallops, Rubs GI/Abdominal Exam: Normal Bowel Sounds, Soft, Non-Tender, No Organomegaly Back Exam: Normal Inspection. No: CVA Tenderness (L), CVA Tenderness (R) Extremities: Normal Inspection, Normal Range of Motion, Non-Tender, No Pedal Edema, Normal Capillary Refill Sepsis Event Note - Evaluation Sepsis Screening Result: Sepsis Risk - Focused Exam Vital Signs: Vital Signs Temp Pulse Resp BP Pulse Ox 02/06/19 15:11 99.9 F 98 24 H 109/66 93 L 02/06/19 12:53 102.6 F H 02/06/19 11:53 102.6 F H 94 24 H 124/78 91 L 02/06/19 11:19 100.6 F 02/06/19 10:06 67 123/78 94 L 02/06/19 10:04 67 123/78 02/06/19 07:58 98.1 F 103 H 16 126/83 99 Date Exam was Performed: 02/06/19 Time Exam was Performed: 20:59 - Problem List & Annotations (1) UTI (urinary tract infection) SNOMED Code(s): 98887820 Code(s): N39.0 - URINARY TRACT INFECTION, SITE NOT SPECIFIED Status: Acute Current Visit: Yes Qualifiers: Urinary tract infection type: acute cystitis Hematuria presence: with hematuria Qualified Code(s): N30.01 - Acute cystitis with hematuria (2) Fever SNOMED Code(s): 191998477 Code(s): R50.9 - FEVER, UNSPECIFIED Status: Acute Current Visit: Yes (3) Hematuria SNOMED Code(s): 90770768 Code(s): R31.9 - HEMATURIA, UNSPECIFIED Status: Acute Current Visit: Yes (4) Hypertension SNOMED Code(s): 10810321 Code(s): I10 - ESSENTIAL (PRIMARY) HYPERTENSION Status: Acute Current Visit: Yes (5) Tachycardia SNOMED Code(s): 0267628 Code(s): R00.0 - TACHYCARDIA, UNSPECIFIED Status: Acute Current Visit: Yes - Problem List Review Problem List Initiated/Reviewed/Updated: Yes - Plan Plan:: UTI (urinary tract infection) Tachycardia Fever s/p cystoscopy Prostate hypertrophy Pathologic UA after cystoscopy Patient is likely bacteremic due to high and recurrent fevers Urine and blood cultures sent out Continues to have fever spikes, cultured x 2 PLAN - Continue ceftriaxone - Trend temperature - Reculture if febrile - Monitor VS Hypertension Home management with metoprolol and HCTZ PLAN - Continue home meds - Lower metoprolol dose - Hydralazine PRN PROPHYLAXIS DVT-Lovenox GI- not indicated CODE STATUS: FULL CODE DISPOSITION: Patient will be admitted for IV antibiotics and monitorization.
[2019-02-07] MEDS: Enoxaparin 40 MG/0.4 ML Syringe SUBCUT SCH (09:06)
[2019-02-07] MEDS: Tamsulosin 0.4 MG Cap.ER **PT OWN MED PO SCH (09:08)
[2019-02-07] MEDS: Metoprolol Tartrate 25 MG Tab PO SCH ×2 (09:08→20:40)
[2019-02-07] MEDS ORDERED: Furosemide 40 MG/4 ML VIAL IVPUSH ONE (10:29)
[2019-02-07] MEDS ORDERED: Magnesium Sulfate/Water 2 GM in Premix Bag 1 BAG IV ONE (11:39)
--- NOTE | 2019-02-07 13:01 | PCM.PN ---
- General Info Date of Service: 02/07/19 Subjective Update: Eating ok Tolerating diet Ambulating with assistance BM x2 - Patient Data Vitals - Most Recent: Last Vital Signs Temp 99.1 F 02/07/19 09:07 Pulse 98 02/07/19 09:08 Resp 16 02/07/19 09:07 BP 141/81 H 02/07/19 09:08 Pulse Ox 92 L 02/07/19 09:07 Weight - Most Recent: 80.377 kg - Exam General: Alert, Oriented, Cooperative, No Acute Distress HEENT: Mucous Membr. Moist/[place] Neck: Supple, Trachea Midline, No JVD, No Thyromegaly, +2 Carotid Pulse wo Bruit Lungs: Clear to Auscultation, Normal Respiratory Effort Cardiovascular: Regular Rate, Regular Rhythm. No: Tachycardia, Murmurs, Gallops , Rubs GI/Abdominal Exam: Normal Bowel Sounds, Soft, Non-Tender Back Exam: Normal Inspection Extremities: Normal Inspection, Pedal Edema Psy/Mental Status: Alert Sepsis Event Note - Evaluation Sepsis Screening Result: No Definite Risk - Focused Exam Vital Signs: Vital Signs Temp Pulse Resp BP Pulse Ox 02/07/19 09:08 98 141/81 H 02/07/19 09:07 99.1 F 98 16 141/81 H 92 L 02/07/19 04:45 99.9 F 91 13 134/87 93 L Date Exam was Performed: 02/07/19 Time Exam was Performed: 12:56 - Problem List & Annotations (1) UTI (urinary tract infection) SNOMED Code(s): 54053264 Code(s): N39.0 - URINARY TRACT INFECTION, SITE NOT SPECIFIED Status: Acute Current Visit: Yes Qualifiers: Urinary tract infection type: acute cystitis Hematuria presence: with hematuria Qualified Code(s): N30.01 - Acute cystitis with hematuria (2) Fever SNOMED Code(s): 470025321 Code(s): R50.9 - FEVER, UNSPECIFIED Status: Acute Current Visit: Yes (3) Hematuria SNOMED Code(s): 84548382 Code(s): R31.9 - HEMATURIA, UNSPECIFIED Status: Acute Current Visit: Yes (4) Hypertension SNOMED Code(s): 82387840 Code(s): I10 - ESSENTIAL (PRIMARY) HYPERTENSION Status: Acute Current Visit: Yes (5) Tachycardia SNOMED Code(s): 9852994 Code(s): R00.0 - TACHYCARDIA, UNSPECIFIED Status: Acute Current Visit: Yes (6) Klebsiella infection SNOMED Code(s): 469526824 Code(s): A49.8 - OTHER BACTERIAL INFECTIONS OF UNSPECIFIED SITE Status: Acute Current Visit: Yes - Problem List Review Problem List Initiated/Reviewed/Updated: Yes - Plan Plan:: UTI (urinary tract infection)2/2 pansensitive klebsiella pneumonia Tachycardia Fever s/p cystoscopy Prostate hypertrophy Pathologic UA after cystoscopy Patient is likely bacteremic due to high and recurrent fevers Urine and blood cultures sent out Continues to have fever spikes, cultured x 2 Urine culture positive for pansensitive klebsiella PLAN - Continue ceftriaxone - Trend temperature - Reculture if febrile - Monitor VS - F/U cultures Hypertension Home management with metoprolol and HCTZ BP trend 106-140/48-62 PLAN - Continue home meds - Lower metoprolol dose - Hydralazine PRN PROPHYLAXIS DVT-Lovenox GI- not indicated CODE STATUS: FULL CODE DISPOSITION: Patient admitted for IVF and IV antibiotics, las fever spike was yesterday at 12 :53 PM.
[2019-02-07] MEDS: cefTRIAXone 2 GM in Sodium Chloride 0.9% 100 ML IV SCH (16:05)
[2019-02-08] MEDS: Metoprolol Tartrate 25 MG Tab PO SCH (08:09)
[2019-02-08 08:10] VITALS: BP 140/85; PULSE 107
[2019-02-08] MEDS: Enoxaparin 40 MG/0.4 ML Syringe SUBCUT SCH (08:10)
[2019-02-08] MEDS: Tamsulosin 0.4 MG Cap.ER **PT OWN MED PO SCH (08:10)
[2019-02-08] MEDS ORDERED: Potassium Chloride 20 MEQ Tab.ER PO ONE (09:59)
--- NOTE | 2019-02-08 14:07 | PCM.DCSUM1 ---
Discharge Summary - Hospital Course HPI Initial Comments: This is a 78 year old male with past medical history of hypertension who comes to the ED complaining of chills. As per patient he got a cystoscopy yesterday for microscopic hematuria, he tolerated the procedure well; was discharged home after procedure to start Flomax at home. Today in the morning he suddenly developed chills and fever for which he decided to come to the ED to be evaluated. Diagnosis: Stroke: No - Discharge Data Discharge Date: 02/08/19 Discharge Disposition: Home, Self-Care 01 Condition: Stable - Referral to Home Health Primary Care Physician: Alton Vigil Jr, MD - Patient Summary/Data Consults: Consultations 02/06/19 05:24 Consult to Occupational Therapy [OT Evaluation and Treatment] [CONS] Routine Consult to Physical Therapy [PT Evaluation and Treatment] [CONS] Routine Hospital Course: UTI (urinary tract infection)2/2 pansensitive klebsiella pneumonia Tachycardia Fever s/p cystoscopy Prostate hypertrophy Pathologic UA after cystoscopy Patient is likely bacteremic due to high and recurrent fevers Urine and blood cultures sent out Continues to have fever spikes, cultured x 2 -afebrile on day of discharge with negative cultures x2. Urine culture positive for pansensitive klebsiella PLAN - ceftriaxone - Trend temperature - Reculture if febrile - Monitor VS - F/U cultures Hypertension Home management with metoprolol and HCTZ BP trend 106-140/48-62 PLAN - Continue home meds - Lower metoprolol dose - Hydralazine PRN PROPHYLAXIS DVT-Lovenox GI- not indicated CODE STATUS: FULL CODE DISPOSITION: Patient admitted for IVF and IV antibiotics, las fever spike was yesterday at 12 :53 PM. - Patient Instructions Diet: Usual Diet as Tolerated Activity: As Tolerated Driving: May Drive Today Showering/Bathing: May Shower - Discharge Plan *PRESCRIPTION DRUG MONITORING PROGRAM REVIEWED*: No *COPY OF PRESCRIPTION DRUG MONITORING REPORT IN PATIENT [place]: No Prescriptions/Med Rec: Sulfamethoxazole/Trimethoprim [Bactrim Ds Tablet] 1 each PO BID #8 tablet Home Medications: Home Meds Ascorbic Acid [Vitamin C] 1 tab PO DAILY 07/27/13 [History] Multivitamin [Multivitamins] 1 each PO DAILY 07/27/13 [History] hydroCHLOROthiazide [Hydrochlorothiazide] 12.5 mg PO DAILY 07/27/13 [History] Carboxymethylcellulose Sodium [Refresh Tears] 1 ml OP PRN 02/05/19 [History] Cholecalciferol (Vitamin D3) [Vitamin D3] 5,000 unit PO DAILY 02/05/19 [History] Metoprolol Tartrate 25 mg PO BID 02/05/19 [History] Mineral Oil/Petrolatum,White [Lubricant Eye Ointment] 3.5 gm OP 02/05/19 [ History] Tamsulosin [Flomax] 0.4 mg PO DAILY 02/05/19 [History] Metoprolol Tartrate [Lopressor] 25 mg PO BID tablet 02/08/19 [Rx] Sulfamethoxazole/Trimethoprim [Bactrim Ds Tablet] 1 each PO BID #8 tablet [Rx] Forms: ED Department Discharge Referrals: Alton Vigil Jr, MD [Primary Care Provider] - - Discharge Summary/Plan Comment DC Time >30 min.: Yes Discharge Summary/Plan Comment: Patient be discharged home on Bactrim double strength for his Klebsiella UTI. Patient will have a total of 7 to 8 days of antibiotics. Follow-up with primary care provider and urologist in 1 to 2 weeks. - General Info Date of Service: 02/08/19 Admission Dx/Problem (Free Text: UTI Subjective Update: Patient doing well without fever, chills, or dysuria. Functional Status: Reports: Pain Controlled - Review of Systems General: Reports: No Symptoms HEENT: Reports: No Symptoms Pulmonary: Reports: No Symptoms Cardiovascular: Reports: No Symptoms Gastrointestinal: Reports: No Symptoms - Patient Data Vitals - Most Recent: Last Vital Signs Temp 97.9 F 02/08/19 08:07 Pulse 107 H 02/08/19 08:09 Resp 16 02/08/19 08:07 BP 140/85 02/08/19 08:09 Pulse Ox 95 02/08/19 08:07 Weight - Most Recent: 174 lb 6.4 oz I&O - Last 24 hours: Intake & Output 02/07/19 02/08/19 02/08/19 22:59 06:59 14:59 Intake Total 750 600 Output Total 2450 675 Balance -1700 -75 Lab Results - Last 24 hrs: Laboratory Results - last 24 hr 02/08/19 02/08/19 Range/Units 05:35 05:35 WBC 7.72 (4.23-9.07) K/mm3 RBC 4.54 L (4.63-6.08) M/mm3 Hgb 13.2 L (13.7-17.5) gm/dl Hct 38.6 L (40.1-51.0) % MCV 85.0 (79.0-92.2) fl MCH 29.1 (25.7-32.2) pg MCHC 34.2 (32.2-35.5) g/dl RDW Std Deviation 40.4 (35.1-43.9) fL Plt Count 205 (163-337) K/mm3 MPV 9.2 L (9.4-12.3) fl Neut % (Auto) 67.2 (34.0-67.9) % Lymph % (Auto) 14.2 L (21.8-53.1) % [place] % (Auto) 12.6 H (5.3-12.2) % Eos % (Auto) 5.3 (0.8-7.0) Baso % (Auto) 0.4 (0.1-1.2) % Neut # (Auto) 5.19 (1.78-5.38) K/mm3 Lymph # (Auto) 1.10 L (1.32-3.57) K/mm3 [place] # (Auto) 0.97 H (0.30-0.82) K/mm3 Eos # (Auto) 0.41 (0.04-0.54) K/mm3 Baso # (Auto) 0.03 (0.01-0.08) K/mm3 Sodium 133 L (136-145) mEq/L Potassium 3.3 L (3.5-5.1) mEq/L Chloride 98 (98-107) mEq/L Carbon Dioxide 24 (21-32) mEq/L Anion Gap 14.3 (5-15) BUN 12 (7-18) mg/dL Creatinine 0.7 (0.7-1.3) mg/dL Est Cr Clr Drug Dosing 86.86 mL/min Estimated GFR (MDRD) > 60 (>60) mL/min BUN/Creatinine Ratio 17.1 (14-18) Glucose 102 (83-115) mg/dL Calcium 9.3 (8.5-10.1) mg/dL Phosphorus 2.9 (2.6-4.7) mg/dL Magnesium 1.8 (1.8-2.4) mg/dl HETAL Results - Last 24 hrs: Microbiology 02/06/19 12:20 Aerobic Blood Culture - Preliminary Blood - Venous NO GROWTH AFTER 2 DAYS Anaerobic Blood Culture - Preliminary NO GROWTH AFTER 2 DAYS 02/06/19 12:30 Aerobic Blood Culture - Preliminary Blood - Venous - Lab Draw NO GROWTH AFTER 2 DAYS Anaerobic Blood Culture - Preliminary NO GROWTH AFTER 2 DAYS 02/06/19 01:05 Aerobic Blood Culture - Preliminary Blood - Venous - Lab Draw NO GROWTH AFTER 2 DAYS Anaerobic Blood Culture - Preliminary NO GROWTH AFTER 2 DAYS 02/06/19 00:55 Aerobic Blood Culture - Preliminary Blood - Venous NO GROWTH AFTER 2 DAYS Anaerobic Blood Culture - Preliminary NO GROWTH AFTER 2 DAYS 02/05/19 14:20 Aerobic Blood Culture - Preliminary Blood - Venous - Lab Draw NO GROWTH AFTER 2 DAYS Anaerobic Blood Culture - Preliminary NO GROWTH AFTER 2 DAYS 02/05/19 14:30 Aerobic Blood Culture - Preliminary Blood - Venous NO GROWTH AFTER 2 DAYS Anaerobic Blood Culture - Preliminary NO GROWTH AFTER 2 DAYS 02/05/19 13:23 Urine Culture - Final Urine, Bladder Klebsiella Pneumoniae Med Orders - Current: Current Medications Acetaminophen (Tylenol) 650 mg PO Q4H PRN PRN Reason: Pain (Mild 1-3)/fever Last Admin: 02/06/19 12:53 Dose: 650 mg Enoxaparin Sodium (Lovenox) 40 mg SUBCUT DAILY [facility] Last Admin: 02/08/19 08:10 Dose: 40 mg Hydralazine HCl (Apresoline) 10 mg IVPUSH Q2H PRN PRN Reason: Hypertension Ceftriaxone Sodium 2 gm/ (Sodium Chloride) 100 mls @ 200 mls/hr IV Q24H [facility] Last Admin: 02/07/19 16:05 Dose: 200 mls/hr Metoprolol Tartrate (Lopressor) 25 mg PO BID [facility] Last Admin: 02/08/19 08:09 Dose: 25 mg Ondansetron HCl (Zofran) 4 mg IV Q6H PRN PRN Reason: Nausea/Vomiting Ondansetron HCl (Zofran Odt) 4 mg PO Q6H PRN PRN Reason: nausea, able to take PO Sodium Chloride (Saline Flush) 10 ml FLUSH ASDIRECTED PRN PRN Reason: Keep Vein Open Last Admin: 02/05/19 14:25 Dose: 10 ml Tamsulosin HCl (Flomax) 0.4 mg PO DAILY [facility] Last Admin: 02/08/19 08:10 Dose: 0.4 mg Discontinued Medications Acetaminophen (Tylenol) 975 mg PO NOW ONE Stop: 02/05/19 13:40 Last Admin: 02/05/19 14:24 Dose: 975 mg Furosemide (Lasix) 40 mg IVPUSH NOW ONE Stop: 02/07/19 10:30 Last Admin: 02/07/19 10:46 Dose: 40 mg Sodium Chloride (Normal Saline) 1,000 mls @ 100 mls/hr IV ASDIRECTED [facility] Last Admin: 02/05/19 14:30 Dose: 100 mls/hr Ceftriaxone Sodium 2 gm/ (Sodium Chloride) 100 mls @ 200 mls/hr IV ONETIME ONE Stop: 02/05/19 15:39 Last Admin: 02/05/19 15:17 Dose: 200 mls/hr Lactated Ringer's (Ringers, Lactated) 1,000 mls @ 125 mls/hr IV ASDIRECTED [facility] Last Admin: 02/06/19 01:53 Dose: 125 mls/hr Ceftriaxone Sodium 2 gm/ (Sodium Chloride) 100 mls @ 200 mls/hr IV Q24H [facility] Last Admin: 02/05/19 19:46 Dose: Not Given Magnesium Sulfate 2 gm/ Premix 50 mls @ 25 mls/hr IV ONETIME ONE Stop: 02/06/19 10:51 Last Admin: 02/06/19 09:44 Dose: 25 mls/hr Potassium Chloride 10 meq/ (Premix) 100 mls @ 100 mls/hr IV Q1H [facility] Stop: 02/06/19 14:29 Last Admin: 02/06/19 15:00 Dose: 100 mls/hr Magnesium Sulfate 2 gm/ Premix 50 mls @ 25 mls/hr IV ONETIME ONE Stop: 02/07/19 13:38 Last Admin: 02/07/19 13:07 Dose: 25 mls/hr Metoprolol Tartrate (Lopressor) 50 mg PO BID [facility] Metoprolol Tartrate (Lopressor) 25 mg PO BID [facility] Metoprolol Tartrate (Lopressor) 0 mg PO BID [facility] Metoprolol Tartrate (Lopressor) 25 mg PO BID [facility] Last Admin: 02/06/19 20:10 Dose: Not Given Metoprolol Tartrate (Lopressor) 25 mg PO ONETIME ONE Stop: 02/05/19 21:01 Last Admin: 02/05/19 20:18 Dose: 25 mg Metoprolol Tartrate (Lopressor) 25 mg PO BID [facility] Potassium Chloride (Klor-Con M20) 40 meq PO ONETIME ONE Stop: 02/08/19 10:00 Last Admin: 02/08/19 10:33 Dose: 40 meq - Exam General: Reports: Alert, Oriented HEENT: Reports: Pupils Equal Neck: Reports: Supple Lungs: Reports: Clear to Auscultation, Normal Respiratory Effort Cardiovascular: Reports: Regular Rate, Regular Rhythm GI/Abdominal Exam: Normal Bowel Sounds, Soft, Non-Tender, No Organomegaly, No Distention, No Abnormal Bruit, No Mass, Pelvis Stable Back Exam: Reports: Normal Inspection Extremities: Normal Inspection
[2019-02-08] MEDS: cefTRIAXone 2 GM in Sodium Chloride 0.9% 100 ML IV SCH (14:08)
== END 2019-02-08 15:29 | disposition home or self-care (01) | DRG 699 ==
LOC: JD.ED 12:56 → JD.MS 17:16 → OBSVTOIN 02-06 14:48
PROVIDERS: ADMIT Internal Medicine; ATTEND Internal Medicine
DX: N99.89 Other postprocedural complications and disorders of genitourinary system (principal); R00.0 Tachycardia, unspecified; H40.9 Unspecified glaucoma; H54.7 Unspecified visual loss; N30.01 Acute cystitis with hematuria; N40.0 Benign prostatic hyperplasia without lower urinary tract symptoms; I48.91 Unspecified atrial fibrillation; F10.21 Alcohol dependence, in remission; I10 Essential (primary) hypertension; G47.30 Sleep apnea, unspecified; B96.1 Klebsiella pneumoniae [K. pneumoniae] as the cause of diseases classified elsewhere; Z91.048 Other nonmedicinal substance allergy status; Z96.659 Presence of unspecified artificial knee joint; Z79.899 Other long term (current) drug therapy; Z88.0 Allergy status to penicillin; Z88.8 Allergy status to other drugs, medicaments and biological substances; Z91.09 Other allergy status, other than to drugs and biological substances
CPT/HCPCS: 36415 ×2; 51798; 80048; 80053; 81001; 83605 ×3; 83735; 84100; 85025 ×2; 87040 ×6; 87086; 87088; 87186; 87804 ×2; 96361; 96365; 97162; 97165; 97530 ×2; 99284; A9270 ×6; J0696; J1650; J3475; J3480 ×3; J7030; J7050; J7120 ×2; 96367; 96372; 99285; G0378; J1940

== ENCOUNTER 2020-07-26 12:31 | Emergency (ER) | payer MEDICARE, OTHER ==
[2020-07-26 12:53] VITALS: PULSE 88
[2020-07-26] MEDS ORDERED: Lidocaine 1% with EPINEPHrine 1:100,000 10 ML MDV INJECT ONE (13:05)
[2020-07-26] MEDS ORDERED: Oxymetazoline 0.05% Nasal Spray 30 ML Bottle NAS ONE (13:10)
--- NOTE | 2020-07-26 13:35 | EDM.PDOC ---
ED HPI GENERAL MEDICAL PROBLEM - General Chief Complaint: ENT Problem Stated Complaint: NOSEBLEED Time Seen by Provider: 07/26/20 13:01 - History of Present Illness INITIAL COMMENTS - FREE TEXT/NARRATIVE: 80-year-old male presents the emergency room with a nosebleed. This started around 1215 he has tried various things to get it to stop without much success. Patient does take aspirin but he is not anticoagulated. The patient is treated for hypertension. The nosebleed seems to be mostly on the right side. Patient has not had any other symptoms associated with this. In triage the patient's blood pressure was quite elevated and they are letting him rest before rechecking it. I believe they said it was 156/124. I am waiting on this. - Related Data Allergies Allergy/AdvReac Type Severity Reaction Status Date / Time cat dander Allergy Severe Cannot Verified 07/26/20 12:53 Remember latanoprost [From Xalatan] Allergy Severe Edema Verified 07/26/20 12:53 Penicillins Allergy Severe Anaphylactic Verified 07/26/20 12:53 Shock timolol [Timolol] Allergy Severe Edema Verified 07/26/20 12:53 Home Meds: Home Meds Ascorbic Acid [Vitamin C] 1 tab PO DAILY 07/27/13 [History] Multivitamin [Multivitamins] 1 each PO DAILY 07/27/13 [History] hydroCHLOROthiazide [Hydrochlorothiazide] 12.5 mg PO DAILY 07/27/13 [History] Carboxymethylcellulose Sodium [Refresh Tears] 1 ml OP DAILY PRN 02/05/19 [History] Cholecalciferol (Vitamin D3) [Vitamin D3] 5,000 unit PO DAILY 02/05/19 [History] Metoprolol Tartrate 25 mg PO BID 02/05/19 [History] Mineral Oil/Petrolatum,White [Lubricant Eye Ointment] 3.5 gm OP DAILY 02/05/19 [History] Tamsulosin [Flomax] 0.4 mg PO DAILY 02/05/19 [History] Metoprolol Tartrate [Lopressor] 25 mg PO BID tablet 02/08/19 [Rx] Sulfamethoxazole/Trimethoprim [Bactrim Ds Tablet] 1 each PO BID #8 tablet 02/08/19 [Rx] Past Medical History HEENT History: Reports: Glaucoma, Impaired Vision Other HEENT History: WEARS GLASSES AND DENTURES, 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 - Past Surgical History Head Surgeries/Procedures: Reports: None HEENT Surgical History: Reports: Eye Surgery, Oral Surgery, Tonsillectomy Cardiovascular Surgical History: Reports: None Respiratory Surgical History: Reports: None GI Surgical History: Reports: Colonoscopy, EGD, Hernia, Inguinal, Hernia Repair/Other Other GI Surgeries/Procedures: Hernia sx X5 per patient. Male Surgical History: Reports: None Endocrine Surgical History: Reports: None Neurological Surgical History: Reports: None Musculoskeletal Surgical History: Reports: Knee Replacement, Other (See Below) Other Musculoskeletal Surgeries/Procedures:: HAMMERTOE FIXED, BILATERAL TKAS. States has a chronic problem with left foot Oncologic Surgical History: Reports: None Dermatological Surgical History: Reports: None Social & Family History - Family History Family Medical History: Unobtainable - Tobacco Use Tobacco Use Status *Q: Never Tobacco User - Caffeine Use Caffeine Use: Reports: Coffee - Recreational Drug Use Recreational Drug Use: No - Living Situation & Occupation Living situation: Reports: , with Spouse Occupation: Retired ED ROS ENT - Review of Systems Review Of Systems: See Below Constitutional: Reports: No Symptoms HEENT: Reports: Nosebleed Respiratory: Reports: No Symptoms, Cough GI/Abdominal: Reports: No Symptoms ED EXAM, ENT - Physical Exam Exam: See Below Exam Limited By: No Limitations General Appearance: Alert, No Apparent Distress, Other (Awaiting on blood pressure recheck) Eye Exam: Bilateral Eye: Normal Inspection Nose: Other (Bleeding from the right naris. The patient blew clots out and held pressure to the area no active bleeding at this time.) Mouth/Throat: Normal Inspection, Normal Gums, Normal Lips, Normal Oropharynx, Other (Small amount of blood drainage down the posterior pharynx has occurred but not actively at this time) Head: Atraumatic, Normocephalic Neck: Normal Inspection, Supple, Non-Tender, Full Range of Motion. No: Lymphadenopathy (L), Lymphadenopathy (R) Respiratory/Chest: No Respiratory Distress, Lungs Clear, Normal Breath Sounds Cardiovascular: Regular Rate, Rhythm, No Edema, No Murmur Course - Vital Signs Last Recorded V/S: Last Vital Signs Temp 36.8 C 07/26/20 12:51 Pulse 88 07/26/20 12:51 Resp 16 07/26/20 12:51 BP Pulse Ox 94 L 07/26/20 12:51 - Orders/Labs/Meds Orders: Active Orders 24 hr Category Date Time Status Tranexamic Acid [Cyklokapron] Med 07/26/20 13:15 Active 2 mg TOP ONETIME Medication Orders Tranexamic Acid (Tranexamic Acid 1,000 Mg/10 Ml Amp) 2 mg TOP ONETIME YASMIN Last Admin: 07/26/20 13:21 Dose: 2 mg Documented by: ROSALIND Labs: Laboratory Tests 07/26/20 07/26/20 07/26/20 Range/Units 13:21 13:21 13:21 WBC 4.62 (4.23-9.07) K/mm3 RBC 4.84 (4.63-6.08) M/mm3 Hgb 13.8 (13.7-17.5) gm/dl Hct 41.7 (40.1-51.0) % MCV 86.2 (79.0-92.2) fl MCH 28.5 (25.7-32.2) pg MCHC 33.1 (32.2-35.5) g/dl RDW Std Deviation 42.1 (35.1-43.9) fL Plt Count 245 (163-337) K/mm3 MPV 8.8 L (9.4-12.3) fl Neut % (Auto) 66.1 (34.0-67.9) % Lymph % (Auto) 17.5 L (21.8-53.1) % [place] % (Auto) 10.0 (5.3-12.2) % Eos % (Auto) 5.6 (0.8-7.0) Baso % (Auto) 0.6 (0.1-1.2) % Neut # (Auto) 3.05 (1.78-5.38) K/mm3 Lymph # (Auto) 0.81 L (1.32-3.57) K/mm3 [place] # (Auto) 0.46 (0.30-0.82) K/mm3 Eos # (Auto) 0.26 (0.04-0.54) K/mm3 Baso # (Auto) 0.03 (0.01-0.08) K/mm3 PT 11.4 (9.7-12.0) SECONDS INR 1.07 APTT 30.2 (21.7-31.4) SECONDS Sodium 138 (136-145) mEq/L Potassium 3.7 (3.5-5.1) mEq/L Chloride 101 (98-107) mEq/L Carbon Dioxide 28 (21-32) mEq/L Anion Gap 12.7 (5-15) BUN 17 (7-18) mg/dL Creatinine 0.7 (0.7-1.3) mg/dL Est Cr Clr Drug Dosing 81.31 mL/min Estimated GFR (MDRD) > 60 (>60) mL/min BUN/Creatinine Ratio 24.3 H (14-18) Glucose 103 H (70-99) mg/dL Calcium 9.0 (8.5-10.1) mg/dL Total Bilirubin 1.2 H (0.2-1.0) mg/dL AST 24 (15-37) U/L ALT 26 (16-63) U/L Alkaline Phosphatase 84 (46-116) U/L Total Protein 7.5 (6.4-8.2) g/dl Albumin 3.6 (3.4-5.0) g/dl Globulin 3.9 gm/dL Albumin/Globulin Ratio 0.9 L (1-2) Meds: Medications Generic Name Dose Route Start Last Admin Trade Name Freq PRN Reason Stop Dose Admin Tranexamic Acid 2 mg 07/26/20 13:15 07/26/20 13:21 Tranexamic Acid 1,000 Mg/10 Ml Amp TOP 2 mg ONETIME YASMIN Administration Discontinued Medications Generic Name Dose Route Start Last Admin Trade Name Fidencio PRAshok Reason Stop Dose Admin Lidocaine/Epinephrine 10 ml 07/26/20 13:05 07/26/20 13:21 Lidocaine 1% With Epinephrine 1:100,000 10 Ml Mdv INJECT 07/26/20 13:06 10 ml ONETIME ONE Administration Oxymetazoline HCl 2 ml 07/26/20 13:10 07/26/20 13:21 Oxymetazoline 0.05% Nasal [place] 30 Ml Bottle BLANK 07/26/20 13:11 2 ml ONETIME ONE Administration - Re-Assessments/Exams Free Text/Narrative Re-Assessment/Exam: 07/26/20 14:14 Check of the blood pressures show 140s to 150s over 90s-104 Initially when I first evaluated the patient I had him blow off a clot from his nose. Then will direct pressure to the nose. He has been having no bleeding since that time. Cannot clearly identify the bleeding spot. Labs are noncontributory at this time. 07/26/20 14:53 The patient continues to do well we will discharge at this time Departure - Departure Time of Disposition: 14:53 Disposition: Home, Self-Care 01 Clinical Impression: Epistaxis - Discharge Information Referrals: Brody Shane MD [Primary Care Provider] - Forms: ED Department Discharge Additional Instructions: Return to the emergency room with any questions problems or worsening symptoms. If the bleeding returns blow your nose very well and hold pressure to it as we discussed. But some KY jelly under your nose not in your nostril a small amount of this helps moisten the air you breathe. Sepsis Event Note (ED) - Evaluation Sepsis Screening Result: No Definite Risk - Focused Exam Vital Signs: Vital Signs Temp Pulse Resp Pulse Ox 07/26/20 12:51 36.8 C 88 16 94 L - My Orders Last 24 Hours: My Active Orders 07/26/20 13:15 Tranexamic Acid [Cyklokapron] 2 mg TOP ONETIME - Assessment/Plan Last 24 Hours: My Active Orders 07/26/20 13:15 Tranexamic Acid [Cyklokapron] 2 mg TOP ONETIME
== END 2020-07-26 15:08 | disposition home or self-care (01) ==
LOC: JD.ED 12:31
DX: R04.0 Epistaxis (principal); I10 Essential (primary) hypertension; Z88.0 Allergy status to penicillin; Z91.048 Other nonmedicinal substance allergy status
CPT/HCPCS: 36415; 80053; 85025; 85610; 85730; 99282; 99283; A9270-GY

== ENCOUNTER 2020-08-06 22:07 | Emergency (ER) | payer MEDICARE, OTHER ==
[2020-08-06] MEDS ORDERED: Oxymetazoline 0.05% Nasal Spray 30 ML Bottle NAS ONE (22:26)
[2020-08-06 22:28] VITALS: PULSE 84
[2020-08-06] MEDS ORDERED: Labetalol 100 MG/20 ML MDV IVPUSH ONE (22:44)
[2020-08-06] MEDS ORDERED: Sodium Chloride 0.9% 10 ML Syringe FLUSH PRN (22:44)
--- NOTE | 2020-08-07 00:04 | EDM.PDOC ---
ED HPI GENERAL MEDICAL PROBLEM - General Chief Complaint: ENT Problem Stated Complaint: ANOTHER NOSE BLEED 2 TODAY Time Seen by Provider: 08/06/20 22:23 Source of Information: Reports: Patient, RN Notes Reviewed - History of Present Illness INITIAL COMMENTS - FREE TEXT/NARRATIVE: 80 yr old male with first nose bleed and ED visit about 11 days ago. It stopped with pressure, no further intervention needed that visit. 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 Mainly R sided with a lot of post drainage. Takes aspirin. On 2 meds for Htn. Has not otherwise been recently ill. - Related Data Allergies Allergy/AdvReac Type Severity Reaction Status Date / Time cat dander Allergy Severe Cannot Verified 08/06/20 22:31 Remember latanoprost [From Xalatan] Allergy Severe Edema Verified 08/06/20 22:31 Penicillins Allergy Severe Anaphylactic Verified 08/06/20 22:31 Shock timolol [Timolol] Allergy Severe Edema Verified 08/06/20 22:31 Home Meds: Home Meds Ascorbic Acid [Vitamin C] 1 tab PO DAILY 07/27/13 [History] Multivitamin [Multivitamins] 1 each PO DAILY 07/27/13 [History] hydroCHLOROthiazide [Hydrochlorothiazide] 12.5 mg PO DAILY 07/27/13 [History] Carboxymethylcellulose Sodium [Refresh Tears] 1 ml OP DAILY PRN 02/05/19 [History] Cholecalciferol (Vitamin D3) [Vitamin D3] 5,000 unit PO DAILY 02/05/19 [History] Metoprolol Tartrate 25 mg PO BID 02/05/19 [History] Mineral Oil/Petrolatum,White [Lubricant Eye Ointment] 3.5 gm OP DAILY 02/05/19 [History] Tamsulosin [Flomax] 0.4 mg PO DAILY 02/05/19 [History] Metoprolol Tartrate [Lopressor] 25 mg PO BID tablet 02/08/19 [Rx] Sulfamethoxazole/Trimethoprim [Bactrim Ds Tablet] 1 each PO BID #8 tablet 02/08/19 [Rx] Past Medical History HEENT History: Reports: Glaucoma, Impaired Vision Other HEENT History: WEARS GLASSES AND DENTURES, 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 - Past Surgical History Head Surgeries/Procedures: Reports: None HEENT Surgical History: Reports: Eye Surgery, Oral Surgery, Tonsillectomy Cardiovascular Surgical History: Reports: None Respiratory Surgical History: Reports: None GI Surgical History: Reports: Colonoscopy, EGD, Hernia, Inguinal, Hernia Repair/Other Other GI Surgeries/Procedures: Hernia sx X5 per patient. Male Surgical History: Reports: None Endocrine Surgical History: Reports: None Neurological Surgical History: Reports: None Musculoskeletal Surgical History: Reports: Knee Replacement, Other (See Below) Other Musculoskeletal Surgeries/Procedures:: HAMMERTOE FIXED, BILATERAL TKAS. States has a chronic problem with left foot Oncologic Surgical History: Reports: None Dermatological Surgical History: Reports: None Social & Family History - Family History Family Medical History: Unobtainable - Tobacco Use Tobacco Use Status *Q: Never Tobacco User Second Hand Smoke Exposure: No - Caffeine Use Caffeine Use: Reports: None - Recreational Drug Use Recreational Drug Use: No - Living Situation & Occupation Living situation: Reports: , with Spouse Occupation: Retired ED ROS GENERAL - Review of Systems Review Of Systems: See Below Constitutional: Denies: Fever, Chills, Diaphoresis HEENT: Reports: Nosebleed Respiratory: Denies: Shortness of Breath Cardiovascular: Denies: Chest Pain GI/Abdominal: Denies: Abdominal Pain, Nausea, Vomiting Musculoskeletal: Reports: No Symptoms Skin: Reports: No Symptoms Neurological: Reports: No Symptoms ED EXAM, NEURO - Physical Exam Exam: See Below General Appearance: Alert, Mild Distress Nose: Other (bleeding R ant nose with a lot of post drainage on arrival. Unable to see site due to vigorus bleeding.) Throat/Mouth: Other (blood post pharynx) Head Exam: Atraumatic Neck: Supple Respiratory/Chest: No Respiratory Distress, Lungs Clear, Normal Breath Sounds Cardiovascular: Regular Rate, Rhythm Neurological: Alert, No Motor/Sensory Deficits Extremities: Normal Inspection. No: Pedal Edema Skin Exam: Warm, Dry, Normal Color, No Rash Course - Vital Signs Last Recorded V/S: Last Vital Signs Temp 98.0 F 08/06/20 22:26 Pulse 84 08/06/20 22:26 Resp 24 H 08/06/20 22:26 BP 180/104 H 08/06/20 22:26 Pulse Ox 99 08/06/20 22:26 - Orders/Labs/Meds Orders: Active Orders 24 hr Category Date Time Status Peripheral IV Care [RC] . DIRECTED Care 08/06/20 22:44 Active Sodium Chloride 0.9% [Saline Flush] Med 08/06/20 22:44 Active 10 ml FLUSH ASDIRECTED PRN Peripheral IV Insertion Adult [OM.PC] Stat Oth 08/06/20 22:44 Ordered Medication Orders Sodium Chloride (Sodium Chloride 0.9% 10 Ml Syringe) 10 ml FLUSH ASDIRECTED PRN PRN Reason: Keep Vein Open Last Admin: 08/06/20 22:59 Dose: 10 ml Documented by: ALONDRA Meds: Medications Generic Name Dose Route Start Last Admin Trade Name Freq PRN Reason Stop Dose Admin Sodium Chloride 10 ml 08/06/20 22:44 08/06/20 22:59 Sodium Chloride 0.9% 10 Ml Syringe FLUSH 10 ml ASDIRECTED PRN Administration Keep Vein Open Discontinued Medications Generic Name Dose Route Start Last Admin Trade Name Freq PRN Reason Stop Dose Admin Cocaine HCl 4 ml 08/06/20 22:26 08/06/20 22:32 Cocaine 4 Ml Bottle TOP 08/06/20 22:27 4 ml ONETIME ONE Administration Labetalol HCl 20 mg 08/06/20 22:44 08/06/20 22:51 Labetalol 100 Mg/20 Ml Mdv IVPUSH 08/06/20 22:45 4 ml ONETIME ONE Administration Protocol Oxymetazoline HCl 1 ml 08/06/20 22:26 08/06/20 22:32 Oxymetazoline 0.05% Nasal [place] 30 Ml Bottle BLANK 08/06/20 22:27 1 ml ONETIME ONE Administration - Re-Assessments/Exams Free Text/Narrative Re-Assessment/Exam: 08/07/20 01:[address] too high first several readings. Given labetalol 20 mg IV and with that came down to 140/85. Rx with Cocaine soln R nares and also 2 squirts Afrin nasal spray R nares. With that and good pressure bleeding did stop. R ant septum very inflamed but no definite bleeding site visible. No further bleeding. Discharge instr. as documented. Departure - Departure Time of Disposition: 00:02 Disposition: Home, Self-Care 01 Clinical Impression: Epistaxis - Discharge Information Instructions: Nosebleed, [id number] Referrals: Brody Shane MD [Primary Care Provider] - Forms: ED Department Discharge Additional Instructions: Firm pressure for 20 to 30 minutes complete soft part of nose as discussed if there is any further bleeding. Afrin nasal spray, 2 squirts also as discussed R nose for any further bleeding. Vaseline to distal nose both sides twice daily for 1 week. Stop aspirin for 4 days. Try hard not to blow nose, rest, no vigorous activity for at least 3 to 4 days. Return to ED as needed. Sepsis Event Note (ED) - Evaluation Sepsis Screening Result: No Definite Risk - Focused Exam Vital Signs: Vital Signs Temp Pulse Pulse Resp BP BP Pulse Ox 08/06/20 22:26 98.0 F 84 24 H 180/104 H 99 08/06/20 22:25 98.0 F 84 18 180/124 H 97 - My Orders Last 24 Hours: My Active Orders 08/06/20 22:44 Peripheral IV Care [RC] . DIRECTED Sodium Chloride 0.9% [Saline Flush] 10 ml FLUSH ASDIRECTED PRN Peripheral IV Insertion Adult [OM.PC] Stat - Assessment/Plan Last 24 Hours: My Active Orders 08/06/20 22:44 Peripheral IV Care [RC] . DIRECTED Sodium Chloride 0.9% [Saline Flush] 10 ml FLUSH ASDIRECTED PRN Peripheral IV Insertion Adult [OM.PC] Stat
[2020-08-07 02:19] VITALS: BP 137/83
== END 2020-08-07 00:15 | disposition home or self-care (01) ==
LOC: JD.ED 22:07
DX: R04.0 Epistaxis (principal); I48.91 Unspecified atrial fibrillation; I10 Essential (primary) hypertension; Z91.048 Other nonmedicinal substance allergy status; Z88.0 Allergy status to penicillin; Z88.8 Allergy status to other drugs, medicaments and biological substances; Z79.899 Other long term (current) drug therapy
CPT/HCPCS: 96374; 99283; A9270; J3490

== ENCOUNTER 2021-09-12 20:54 | Emergency (ER) | payer MEDICARE, OTHER ==
[2021-09-12] MEDS: HYDROmorphone 0.5 MG/0.5 ML Syringe IVPUSH ONE ×2 (22:04→22:59)
[2021-09-12] MEDS: Sodium Chloride 0.9% 100 ML IV SCH (22:57)
[2021-09-12] MEDS: Sodium Chloride 0.9% 10 ML Syringe FLUSH ONE (22:57)
[2021-09-12] MEDS: Iopamidol 755 Mg/ML 100 ML Bottle IVPUSH ONE (22:57)
[2021-09-12] MEDS: niCARdipine HCl 25 MG in Sodium Chloride 0.9% 250 ML IV SCH (23:01)
[2021-09-13] MEDS: HYDROmorphone 0.5 MG/0.5 ML Syringe IVPUSH ONE ×2 (01:08→03:24)
[2021-09-13] MEDS: cefTRIAXone 2 GM in Sodium Chloride 0.9% 100 ML IV ONE (03:26)
[2021-09-13] MEDS ORDERED: Dextrose 5%-Lactated Ringers 1,000 ML IV SCH (03:45)
[2021-09-13] MEDS: Dextrose 5%-0.9% NaCl 1,000 ML IV SCH (03:50)
[2021-09-13] MEDS: Dextrose 5%-0.9% NaCl 1,000 ML ONE (03:56)
[2021-09-13 05:13] VITALS: BP 160/97; PULSE 96
== END 2021-09-13 03:50 ==
LOC: JD.ED 20:54
DX: N13.30 Unspecified hydronephrosis (principal); R32 Unspecified urinary incontinence; I48.91 Unspecified atrial fibrillation; I10 Essential (primary) hypertension; Z88.0 Allergy status to penicillin; Z91.09 Other allergy status, other than to drugs and biological substances; Z88.5 Allergy status to narcotic agent; Z79.899 Other long term (current) drug therapy; Z20.822 Contact with and (suspected) exposure to COVID-19
CPT/HCPCS: 36415; 71260; 74177; 80053; 81001; 83690; 84484; 85025; 87040; 87086; 93005; 96365; 96366; 96375; 96376; 99285; J0696; J1170; J3490; J7042; J7050; Q9967; U0002; 93010

== ENCOUNTER 2021-10-03 17:57 | Inpatient (IN) | payer MEDICARE, OTHER ==
[2021-10-03] MEDS ORDERED: Sodium Chloride 0.9% 10 ML Syringe FLUSH PRN (18:28)
[2021-10-03] MEDS ORDERED: Sodium Chloride 0.9% 1,000 ML IV SCH ×2 (18:30→23:15)
[2021-10-03] MEDS ORDERED: cefTRIAXone 2 GM in Sodium Chloride 0.9% 100 ML IV ONE (18:30)
[2021-10-03] MEDS: Acetaminophen 325 MG Tab PO PRN (23:37)
[2021-10-04] MEDS: Acetaminophen 325 MG Tab PO PRN ×3 (04:13→21:24)
[2021-10-04] MEDS ORDERED: Meropenem 1 GM in Sodium Chloride 0.9% 100 ML IV SCH (06:30)
[2021-10-04] MEDS: Tamsulosin 0.4 MG Cap.ER PO SCH (08:19)
[2021-10-04] MEDS: Aspirin 81 MG Tab.Chew PO SCH (08:19)
[2021-10-04] MEDS: Enoxaparin 40 MG/0.4 ML Syringe SUBCUT SCH (08:21)
[2021-10-04] MEDS: Metoprolol Tartrate 25 MG Tab PO SCH ×2 (08:37→20:04)
[2021-10-04] MEDS: NS + KCl 20mEq/L 1,000 ML IV SCH ×2 (08:38→20:11)
[2021-10-04] MEDS: Potassium Chloride 20 MEQ Tab.ER PO SCH ×2 (08:38→20:04)
[2021-10-04] MEDS ORDERED: Hydrochlorothiazide 12.5 MG Cap PO SCH (09:00)
[2021-10-04] MEDS ORDERED: Iopamidol 755 Mg/ML 100 ML Bottle IVPUSH ONE (10:05)
[2021-10-04] MEDS ORDERED: Sodium Chloride 0.9% 100 ML IV SCH (10:15)
[2021-10-04] MEDS: Meropenem Premix 500 MG in Premix Bag 1 BAG IV SCH ×2 (13:53→20:04)
[2021-10-04] MEDS ORDERED: cefTRIAXone 2 GM in Sodium Chloride 0.9% 100 ML IV SCH (18:00)
[2021-10-05] MEDS: Meropenem Premix 500 MG in Premix Bag 1 BAG IV SCH ×4 (01:15→20:33)
[2021-10-05] MEDS: Acetaminophen 325 MG Tab PO PRN (04:38)
[2021-10-05] MEDS ORDERED: Magnesium Sulfate/Water 2 GM in Premix Bag 1 BAG IV ONE (08:30)
[2021-10-05] MEDS: Tamsulosin 0.4 MG Cap.ER PO SCH (08:56)
[2021-10-05] MEDS: Enoxaparin 40 MG/0.4 ML Syringe SUBCUT SCH (08:56)
[2021-10-05] MEDS: Metoprolol Tartrate 25 MG Tab PO SCH ×2 (08:56→20:34)
[2021-10-05] MEDS: Potassium Chloride 20 MEQ Tab.ER PO SCH ×2 (08:56→20:34)
[2021-10-05] MEDS: Aspirin 81 MG Tab.Chew PO SCH (08:56)
[2021-10-06] MEDS: Meropenem Premix 500 MG in Premix Bag 1 BAG IV SCH ×4 (01:51→20:15)
[2021-10-06] MEDS: Metoprolol Tartrate 25 MG Tab PO SCH ×2 (08:15→20:15)
[2021-10-06] MEDS: Losartan 100 MG Tab PO SCH (08:15)
[2021-10-06] MEDS: Aspirin 81 MG Tab.Chew PO SCH (08:16)
[2021-10-06] MEDS: Tamsulosin 0.4 MG Cap.ER PO SCH (08:16)
[2021-10-06] MEDS: Enoxaparin 40 MG/0.4 ML Syringe SUBCUT SCH (08:16)
[2021-10-06] MEDS ORDERED: VALSARTAN 160 MG PO SCH (09:00)
[2021-10-07] MEDS: Meropenem Premix 500 MG in Premix Bag 1 BAG IV SCH ×2 (01:33→08:01)
[2021-10-07] MEDS: Metoprolol Tartrate 25 MG Tab PO SCH (08:00)
[2021-10-07] MEDS: Losartan 100 MG Tab PO SCH (08:00)
[2021-10-07] MEDS: Tamsulosin 0.4 MG Cap.ER PO SCH (08:00)
[2021-10-07] MEDS: Aspirin 81 MG Tab.Chew PO SCH (08:00)
[2021-10-07] MEDS: Enoxaparin 40 MG/0.4 ML Syringe SUBCUT SCH (08:01)
[2021-10-07 08:09] VITALS: BP 140/99; PULSE 106
== END 2021-10-07 11:32 | disposition home or self-care (01) | DRG 690 ==
LOC: JD.ED 17:57 → JD.MS 21:05 → JD.ED 21:05
PROVIDERS: ADMIT Internal Medicine; ATTEND Internal Medicine
DX: N30.01 Acute cystitis with hematuria (principal); E87.1 Hypo-osmolality and hyponatremia; I48.91 Unspecified atrial fibrillation; I10 Essential (primary) hypertension; G47.30 Sleep apnea, unspecified; N40.0 Benign prostatic hyperplasia without lower urinary tract symptoms; F10.21 Alcohol dependence, in remission; E87.5 Hyperkalemia; E53.8 Deficiency of other specified B group vitamins; H54.7 Unspecified visual loss; Z96.652 Presence of left artificial knee joint; H40.9 Unspecified glaucoma; Z86.010 Personal history of colon polyps; Z86.73 Personal history of transient ischemic attack (TIA), and cerebral infarction without residual deficits; Z85.828 Personal history of other malignant neoplasm of skin; Z88.8 Allergy status to other drugs, medicaments and biological substances; Z90.89 Acquired absence of other organs; Z91.09 Other allergy status, other than to drugs and biological substances; Z88.0 Allergy status to penicillin; Z87.891 Personal history of nicotine dependence; Z79.899 Other long term (current) drug therapy; Z79.82 Long term (current) use of aspirin; Z93.6 Other artificial openings of urinary tract status; B96.5 Pseudomonas (aeruginosa) (mallei) (pseudomallei) as the cause of diseases classified elsewhere
CPT/HCPCS: 36415; 80053; 81001; 83605; 85025; 87040 ×2; 87086; 87088 ×3; 87186 ×3; J0696; J7030; 74177; 74177-26; 80048; 83735; 85027; 97116-GP; 97162-GP; 99284; A9270-GY; J1650; J2185; J3475; J3480; Q9967

== ENCOUNTER 2022-07-01 10:47 | Emergency (ER) | payer MEDICARE, OTHER ==
[2022-07-01] MEDS ORDERED: Sodium Chloride 0.9% 1,000 ML IV ONE (11:26)
[2022-07-01 12:01] LABS: BASOPHILS ABSOLUTE AUTO 0.01 K/mm3 (0.01-0.08); BASOPHILS PERCENT AUTO 0.1 % (0.1-1.2); EOSINOPHILS ABSOLUTE AUTO 0.02 K/mm3 (0.04-0.54); EOSINOPHILS PERCENT AUTO 0.1 (0.8-7.0); HEMATOCRIT 38.3 % (40.1-51.0); HEMOGLOBIN 12.7 gm/dl (13.7-17.5); IMMATURE GRAN ABSOLUTE AUTO 0.03 K/mm3 (0.00-0.10); IMMATURE GRAN PERCENT AUTO 0.2 % (<=1.0); LYMPHOCYTES ABSOLUTE AUTO 0.67 K/mm3 (1.32-3.57); LYMPHOCYTES PERCENT AUTO 4.2 % (21.8-53.1); MEAN CORPUSCULAR HEMOGLOBIN 28.2 pg (25.7-32.2); MEAN CORPUSCULAR HGB CONC 33.2 g/dl (32.2-35.5); MEAN CORPUSCULAR VOLUME 84.9 fl (79.0-92.2); MEAN PLATELET VOLUME 8.5 fl (9.4-12.3); MONOCYTES ABSOLUTE AUTO 1.11 K/mm3 (0.30-0.82); NEUTROPHILS ABSOLUTE AUTO 14.03 K/mm3 (1.78-5.38); NEUTROPHILS PERCENT AUTO 88.4 % (34.0-67.9); PLATELET COUNT,PLT 263 K/mm3 (163-337); RED BLOOD CELL COUNT 4.51 M/mm3 (4.63-6.08); WHITE BLOOD CELL COUNT,WBC 15.87 K/mm3 (4.23-9.07)
[2022-07-01 12:05] LABS: APPEARANCE,URINE CLEAR (Clear); BILIRUBIN,URINE NEGATIVE (Negative); COLOR,URINE YELLOW (Yellow); GLUCOSE,URINE NEGATIVE (Negative); KETONES,URINE 1+ (Negative); LEUKOCYTE ESTERASE,URINE TRACE (Negative); NITRITE,URINE NEGATIVE (Negative); OCCULT BLOOD,URINE NEGATIVE (Negative); PROTEIN,URINE NEGATIVE (Negative); UROBILINOGEN,URINE 0.2 (0.2-1.0)
[2022-07-01 12:18] LABS: A/G RATIO 1.2 (1-2); ALBUMIN 3.7 g/dl (3.4-5.0); ANION GAP 10.2 (5-15); BILIRUBIN TOTAL 1.8 mg/dL (0.2-1.0); BUN/CREATININE RATIO 18.6 (14-18); CALCIUM 8.9 mg/dL (8.5-10.1); CREATININE 0.7 mg/dL (0.7-1.3); EST CRCL DRUG DOSING (CG) 78.69 mL/min; POTASSIUM,K 3.2 mEq/L (3.5-5.1); PROTEIN TOTAL,TP 6.7 g/dl (6.4-8.2)
[2022-07-01 12:25] LABS: BACTERIA,URINE FEW /hpf (FEW); EPITHELIAL CELLS,URINE NOT SEEN /hpf (0-5); MUCUS,URINE NOT SEEN /hpf (FEW); RBC,URINE 0-5 /hpf (0-5)
[2022-07-01 12:50] LABS: LACTIC ACID 0.8 mmol/L (0.4-2.0)
[2022-07-01] MEDS ORDERED: Iopamidol 612 MG/ML 100 ML Bottle IVPUSH ONE (14:10)
[2022-07-01] MEDS ORDERED: cefTRIAXone 2 GM in Sodium Chloride 0.9% 100 ML IV ONE (15:21)
[2022-07-01 16:57] VITALS: PULSE 94
[2022-07-01] MEDS ORDERED: Potassium Chloride 20 MEQ Tab.ER PO ONE (16:59)
[2022-07-01 18:09] VITALS: BP 134/85
== END 2022-07-01 17:50 | disposition home or self-care (01) ==
LOC: JD.ED 10:47
DX: N39.0 Urinary tract infection, site not specified (principal); I10 Essential (primary) hypertension; Z88.0 Allergy status to penicillin; Z88.5 Allergy status to narcotic agent; Z88.8 Allergy status to other drugs, medicaments and biological substances; Z91.09 Other allergy status, other than to drugs and biological substances; Z79.82 Long term (current) use of aspirin; Z79.899 Other long term (current) drug therapy
CPT/HCPCS: 36415; 71045; 74177; 80053; 81001; 83605; 85025; 87040; 87086; 96361; 96365; 99284; A9270; J0696; J3490; J7030; Q9967

== ENCOUNTER 2022-08-15 06:37 | Day surgery (SDC) | payer MEDICARE, OTHER ==
[~2022-08-15 06:37] MED LIST changes: +Lidocaine 1% 2 ML ONE; -Lidocaine 1%/Sod Bicarbonate in NS 8.4% 1 ML Syringe IDERM PRN; +Midazolam 1 MG/ML 2 ML SDV ONE; +Propofol 200 MG/20 ML SDV ONE; +Sodium Chloride 0.9% 10 ML Syringe FLUSH SCH; +fentaNYL 100 MCG/2 ML SDV ONE
[2022-08-15] MEDS ORDERED: EPINEPHrine 1 MG/ML SDV ONE (06:38)
[2022-08-15] MEDS ORDERED: Ropivacaine 0.5% 5 MG/ML 30 ML SDV ONE (06:38)
[2022-08-15] MEDS ORDERED: Vancomycin 1 GM SDV ONE (06:39)
[2022-08-15] MEDS ORDERED: Tranexamic Acid 1,000 MG/10 ML Vial ONE (06:39)
[2022-08-15] MEDS ORDERED: Rocuronium 50 MG/5 ML Vial ONE ×2 (06:57→08:00)
[2022-08-15] MEDS ORDERED: Ketorolac 30 MG/ML SDV ONE (06:57)
[2022-08-15] MEDS ORDERED: ceFAZolin 2 GM Vial ONE (06:57)
[2022-08-15] MEDS ORDERED: fentaNYL 100 MCG/2 ML SDV IVPUSH PRN (07:10)
[2022-08-15] MEDS ORDERED: HYDROmorphone 0.5 MG/0.5 ML Syringe IVPUSH PRN (07:10)
[2022-08-15] MEDS ORDERED: Ondansetron 4 MG/2 ML SDV IVPUSH PRN (07:10)
[2022-08-15] MEDS ORDERED: ePHEDrine 50 MG/ML SDV ONE (08:00)
[2022-08-15] MEDS ORDERED: Sugammadex Sodium 200 MG/2 ML VIAL ONE (08:05)
[2022-08-15] MEDS ORDERED: Phenylephrine 1% 10 MG/ML SDV ONE (08:06)
[2022-08-15] MEDS ORDERED: Acetaminophen/HYDROcodone 325-5 MG Tab PO PRN (09:02)
[2022-08-15 12:12] VITALS: BP 127/87; PULSE 95
== END 2022-08-15 12:05 | disposition home or self-care (01) ==
LOC: JD.SDS 06:37
PROVIDERS: ATTEND Orthopaedic Surgery
DX: M19.011 Primary osteoarthritis, right shoulder (principal); M25.811 Other specified joint disorders, right shoulder; I10 Essential (primary) hypertension; E78.00 Pure hypercholesterolemia, unspecified; E53.8 Deficiency of other specified B group vitamins; Z88.0 Allergy status to penicillin; Z88.5 Allergy status to narcotic agent; Z88.1 Allergy status to other antibiotic agents; Z98.890 Other specified postprocedural states; Z87.891 Personal history of nicotine dependence; Z79.899 Other long term (current) drug therapy; Z79.82 Long term (current) use of aspirin
CPT/HCPCS: 23472; 64415; 76000; 97166; 97530; A9270; C1713; C1769; C1776; J0171; J0690; J1885; J2250; J2370; J2704; J2795; J3010; J3370; J3490; J7050; J7120; 01638; 99100